=== PATIENT | female | born 1940 | race African-American/Black ===

== ENCOUNTER 2020-03-26 15:41 | Inpatient (IN) | payer OTHER ==
[2020-03-26] MEDS ORDERED: SODIUM CHLORIDE 0.9% 500 ML INFUS.BAG IV ONE (16:31)
[2020-03-26] MEDS ORDERED: ACETAMINOPHEN 1000 MG/100 ML VIAL (NON FORMULARY) IVPB ONE (16:41)
[2020-03-26] MEDS ORDERED: ACETAMINOPHEN INJECTION 100 ML IVPB ONE (16:41)
[2020-03-26 16:54] LABS: BASO % 0.7 % (0-2.0); HEMOGLOBIN 13.1 GM/dL (10.7-15.3); LYMPH % 5.9 % (8-40); MCH 29.8 pg (25.7-33.7); MCHC 31.9 g/dl (32.0-36.0); MEAN CELL VOLUME 93.2 fl (80-96); MEAN PLT VOLUME 9.5 fl (7.5-11.1); MONO % 4.1 % (3.8-10.2); NEUT % 89.3 % (42.8-82.8); PLATELET COUNT 222 K/MM3 (134-434); RBC 4.39 M/mm3 (3.60-5.2); RDW 14.6 % (11.6-15.6); WHITE BLOOD COUNT 11.1 K/mm3 (4.0-10.0)
[2020-03-26 16:57] LABS: VENOUS BASE EXCESS 1.2 mmol/L (-2-2); VENOUS O2 SATURATION 22.9 % (70-80); VENOUS PCO2 50.1 mmHg (38-52); VENOUS PH 7.355 (7.310-7.410)
[2020-03-26 17:03] LABS: PROTHROMBIN TIME (PATIENT) 48.2 SEC (9.7-13.0)
[2020-03-26 17:05] LABS: ACTIVATED PTT 32.9 SECONDS (25.2-36.5)
[2020-03-26 17:06] LABS: EPI CELLS >36 /uL (0-25.1); HYALINE CASTS 42 /uL (0-3.1); PH,URINE 6.5 (5.0-8.0); URINE APPEARANCE TURBID; URINE BACTERIA >9,000 /uL (0-1359); URINE BILIRUBIN NEGATIVE (NEGATIVE); URINE COLOR YELLOW; URINE GLUCOSE (UA) NEGATIVE (NEGATIVE); URINE KETONE NEGATIVE (NEGATIVE); URINE LEUK ESTERASE 3+ (NEGATIVE); URINE NITRITE POSITIVE (NEGATIVE); URINE PROTEIN 1+ (NEGATIVE); URINE WBC 14245 /uL (0-25.8)
[2020-03-26 17:14] LABS: POTASSIUM 4.9 mmol/L (3.5-5.1)
[2020-03-26 17:16] LABS: ALBUMIN 3.6 g/dl (3.4-5.0); BLOOD UREA NITROGEN 12.8 mg/dL (7-18)
[2020-03-26 17:19] LABS: CREATININE 1.1 mg/dL (0.55-1.3)
[2020-03-26 17:21] LABS: BILIRUBIN,TOTAL 0.9 mg/dL (0.2-1); TOT PROT 7.5 g/dl (6.4-8.2)
[2020-03-26 17:25] LABS: URINE RBC 161.7 /uL (0-23.9)
[2020-03-26 17:28] LABS: INR 4.08 (0.83-1.09)
[2020-03-26] MEDS ORDERED: ERTAPENEM SODIUM 1 GM in SODIUM CHLORIDE 50 ML IVPB ONE (17:30)
[2020-03-26] MEDS ORDERED: ERTAPENEM SODIUM 1 GM VIAL ONE (17:46)
[2020-03-26] MEDS ORDERED: ACETAMINOPHEN 325 MG TABLET (FP) PO PRN (21:59)
[2020-03-26] MEDS ORDERED: SODIUM CHLORIDE 1,000 ML IV SCH (22:00)
[2020-03-26] MEDS: INSULIN SLIDING SCALE (NOVOLOG) 1 VIAL SQ SCH (22:54)
[2020-03-27] MEDS ORDERED: SODIUM CHLORIDE 1,000 ML IV SCH (01:30)
[2020-03-27] MEDS: INSULIN SLIDING SCALE (NOVOLOG) 1 VIAL SQ SCH ×4 (07:08→21:42)
[2020-03-27] MEDS ORDERED: ENOXAPARIN NA (PORCINE) 40 MG/0.4 ML DISP.SYRIN SQ SCH (10:00)
[2020-03-27] MEDS: ERTAPENEM SODIUM 1 GM in SODIUM CHLORIDE 50 ML IVPB SCH (11:21)
[2020-03-27 12:43] LABS: HEMATOCRIT 33.5 % (32.4-45.2); MCH 30.3 pg (25.7-33.7); MCHC 32.8 g/dl (32.0-36.0); MEAN CELL VOLUME 92.4 fl (80-96); MEAN PLT VOLUME 9.8 fl (7.5-11.1); PLATELET COUNT 167 K/MM3 (134-434); RBC 3.62 M/mm3 (3.60-5.2); RDW 13.9 % (11.6-15.6); WHITE BLOOD COUNT 10.4 K/mm3 (4.0-10.0)
[2020-03-27 12:47] LABS: PROTHROMBIN TIME (PATIENT) 56.2 SEC (9.7-13.0)
[2020-03-27 12:58] LABS: POTASSIUM 3.7 mmol/L (3.5-5.1)
[2020-03-27 13:02] LABS: BLOOD UREA NITROGEN 11.2 mg/dL (7-18)
[2020-03-27 13:03] LABS: CALCIUM 8.1 mg/dL (8.5-10.1); MAGNESIUM 1.7 mg/dL (1.8-2.4)
[2020-03-27 13:05] LABS: PHOSPHOROUS 2.4 mg/dL (2.5-4.9)
[2020-03-27 13:06] LABS: CREATININE 0.9 mg/dL (0.55-1.3)
[2020-03-27 13:50] LABS: INR 4.86 (0.83-1.09)
[2020-03-27] MEDS ORDERED: PT OWN MED DRAWER 7, Y5N ONE (23:20)
[2020-03-28] MEDS: INSULIN SLIDING SCALE (NOVOLOG) 1 VIAL SQ SCH ×4 (06:13→21:09)
[2020-03-28 08:37] LABS: INR 2.76 (0.83-1.09)
[2020-03-28 08:42] LABS: POTASSIUM 4.1 mmol/L (3.5-5.1)
[2020-03-28 08:48] LABS: ALBUMIN 2.6 g/dl (3.4-5.0); BLOOD UREA NITROGEN 13.1 mg/dL (7-18); CALCIUM 8.3 mg/dL (8.5-10.1)
[2020-03-28 08:49] LABS: BASO % 0.6 % (0-2.0); EOS % 0.4 % (0-4.5); HEMATOCRIT 31.5 % (32.4-45.2); HEMOGLOBIN 10.2 GM/dL (10.7-15.3); LYMPH % 9.6 % (8-40); MCH 30.2 pg (25.7-33.7); MCHC 32.3 g/dl (32.0-36.0); MEAN CELL VOLUME 93.7 fl (80-96); MEAN PLT VOLUME 9.9 fl (7.5-11.1); MONO % 5.4 % (3.8-10.2); PLATELET COUNT 146 K/MM3 (134-434); RBC 3.36 M/mm3 (3.60-5.2); RDW 14.4 % (11.6-15.6); WHITE BLOOD COUNT 9.3 K/mm3 (4.0-10.0)
[2020-03-28 08:51] LABS: CREATININE 0.9 mg/dL (0.55-1.3)
[2020-03-28 08:52] LABS: BILIRUBIN,TOTAL 0.7 mg/dL (0.2-1)
[2020-03-28 09:06] LABS: TOT PROT 5.5 g/dl (6.4-8.2)
[2020-03-28] MEDS: ERTAPENEM SODIUM 1 GM in SODIUM CHLORIDE 50 ML IVPB SCH (10:10)
[2020-03-28 10:34] LABS: PLATELET ESTIMATE DECREASED
[2020-03-28] MEDS ORDERED: INSULIN (NOVOLOG) ASPART 100 UNITS/ML 10ML VIAL ONE (11:00)
[2020-03-28] MEDS: FUROSEMIDE 20 MG TABLET (FP) PO SCH (14:26)
[2020-03-28] MEDS: ASCORBIC ACID 500 MG TABLET (FP) PO SCH (14:26)
[2020-03-28] MEDS ORDERED: WARFARIN NA 3 MG TABLET PO ONE (16:27)
[2020-03-28] MEDS: ARIPiprazole 2 MG TABLET PO SCH ×2 (17:15→21:08)
[2020-03-28] MEDS: CEFAZOLIN 2 GM/D5W 2 GM/50 ML ML IVPB SCH (17:15)
[2020-03-28] MEDS ORDERED: PT OWN MED DRAWER 7, Y5N ONE (20:59)
[2020-03-28] MEDS: DOCUSATE SODIUM 100 MG CAPSULE (FP) PO SCH ×2 (21:08→21:10)
[2020-03-28] MEDS: ATORVASTATIN CA 10 MG TABLET (FP) PO SCH (21:08)
[2020-03-28] MEDS ORDERED: METHYL SALICYLATE/MENTHOL OINT 30 GM TUBE TP SCH (23:00)
[2020-03-29] MEDS: CEFAZOLIN 2 GM/D5W 2 GM/50 ML ML IVPB SCH ×3 (01:12→18:07)
[2020-03-29] MEDS: INSULIN SLIDING SCALE (NOVOLOG) 1 VIAL SQ SCH ×4 (06:04→22:01)
[2020-03-29] MEDS ORDERED: INSULIN (NOVOLOG) ASPART 100 UNITS/ML 10ML VIAL ONE ×2 (06:50→11:02)
[2020-03-29] MEDS ORDERED: PT OWN MED DRAWER 7, Y5N ONE ×2 (09:01→21:51)
[2020-03-29 09:08] LABS: BASO % 0.5 % (0-2.0); EOS % 1.7 % (0-4.5); HEMATOCRIT 31.1 % (32.4-45.2); HEMOGLOBIN 10.3 GM/dL (10.7-15.3); LYMPH % 13.4 % (8-40); MCH 30.3 pg (25.7-33.7); MEAN CELL VOLUME 91.7 fl (80-96); MEAN PLT VOLUME 8.9 fl (7.5-11.1); MONO % 7.3 % (3.8-10.2); NEUT % 77.1 % (42.8-82.8); PLATELET COUNT 176 K/MM3 (134-434); RDW 14.1 % (11.6-15.6)
[2020-03-29] MEDS: ASCORBIC ACID 500 MG TABLET (FP) PO SCH (09:13)
[2020-03-29] MEDS: FUROSEMIDE 20 MG TABLET (FP) PO SCH (09:13)
[2020-03-29] MEDS: DOCUSATE SODIUM 100 MG CAPSULE (FP) PO SCH ×2 (09:13→21:52)
[2020-03-29] MEDS: ARIPiprazole 2 MG TABLET PO SCH ×2 (09:13→21:53)
[2020-03-29] MEDS: MULTIVITAMINS (DAILY MVI) TABLET (FP) PO SCH (09:13)
[2020-03-29 09:29] LABS: POTASSIUM 3.9 mmol/L (3.5-5.1)
[2020-03-29 09:39] LABS: ALBUMIN 2.6 g/dl (3.4-5.0); BLOOD UREA NITROGEN 10.1 mg/dL (7-18); CALCIUM 8.3 mg/dL (8.5-10.1); INR 2.16 (0.83-1.09); MAGNESIUM 1.9 mg/dL (1.8-2.4); PROTHROMBIN TIME (PATIENT) 25.6 SEC (9.7-13.0)
[2020-03-29 09:42] LABS: CREATININE 0.8 mg/dL (0.55-1.3)
[2020-03-29 09:43] LABS: BILIRUBIN,TOTAL 0.6 mg/dL (0.2-1); TOT PROT 5.6 g/dl (6.4-8.2)
[2020-03-29] MEDS ORDERED: WARFARIN NA 3 MG TABLET PO SCH (18:00)
[2020-03-29] MEDS: ATORVASTATIN CA 10 MG TABLET (FP) PO SCH (21:53)
[2020-03-30] MEDS: CEFAZOLIN 2 GM/D5W 2 GM/50 ML ML IVPB SCH ×3 (01:43→17:08)
[2020-03-30] MEDS: INSULIN SLIDING SCALE (NOVOLOG) 1 VIAL SQ SCH ×4 (06:33→21:17)
[2020-03-30] MEDS ORDERED: PT OWN MED DRAWER 7, Y5N ONE ×2 (09:19→21:11)
[2020-03-30] MEDS: FUROSEMIDE 20 MG TABLET (FP) PO SCH (09:25)
[2020-03-30] MEDS: MULTIVITAMINS (DAILY MVI) TABLET (FP) PO SCH (09:25)
[2020-03-30] MEDS: DOCUSATE SODIUM 100 MG CAPSULE (FP) PO SCH ×2 (09:25→21:19)
[2020-03-30] MEDS: ARIPiprazole 2 MG TABLET PO SCH ×2 (09:25→21:19)
[2020-03-30] MEDS: ASCORBIC ACID 500 MG TABLET (FP) PO SCH (09:25)
[2020-03-30 13:58] LABS: BASO % 0.4 % (0-2.0); HEMATOCRIT 32.6 % (32.4-45.2); HEMOGLOBIN 10.8 GM/dL (10.7-15.3); LYMPH % 18.7 % (8-40); MCH 30.3 pg (25.7-33.7); MEAN CELL VOLUME 91.8 fl (80-96); MEAN PLT VOLUME 8.7 fl (7.5-11.1); MONO % 7.4 % (3.8-10.2); NEUT % 71.5 % (42.8-82.8); PLATELET COUNT 217 K/MM3 (134-434); RBC 3.55 M/mm3 (3.60-5.2); RDW 14.1 % (11.6-15.6); WHITE BLOOD COUNT 6.9 K/mm3 (4.0-10.0)
[2020-03-30 14:13] LABS: INR 3.22 (0.83-1.09); PROTHROMBIN TIME (PATIENT) 38.3 SEC (9.7-13.0)
[2020-03-30 14:21] LABS: POTASSIUM 3.7 mmol/L (3.5-5.1)
[2020-03-30 14:24] LABS: ALBUMIN 2.6 g/dl (3.4-5.0); BLOOD UREA NITROGEN 8.9 mg/dL (7-18); CALCIUM 8.5 mg/dL (8.5-10.1)
[2020-03-30 14:27] LABS: CREATININE 0.8 mg/dL (0.55-1.3)
[2020-03-30 14:29] LABS: BILIRUBIN,TOTAL 0.5 mg/dL (0.2-1)
[2020-03-30] MEDS ORDERED: WARFARIN NA 3 MG TABLET PO SCH (18:00)
[2020-03-30] MEDS: ATORVASTATIN CA 10 MG TABLET (FP) PO SCH (21:19)
[2020-03-31] MEDS ORDERED: CEPHALEXIN MONOHYDRATE 500 MG CAPSULE (UD) PO SCH (06:00)
[2020-03-31] MEDS: INSULIN SLIDING SCALE (NOVOLOG) 1 VIAL SQ SCH ×2 (06:14→12:11)
[2020-03-31] MEDS ORDERED: PT OWN MED DRAWER 7, Y5N ONE (09:33)
[2020-03-31] MEDS: ARIPiprazole 2 MG TABLET PO SCH (09:38)
[2020-03-31] MEDS: DOCUSATE SODIUM 100 MG CAPSULE (FP) PO SCH (09:38)
[2020-03-31] MEDS: MULTIVITAMINS (DAILY MVI) TABLET (FP) PO SCH (09:38)
[2020-03-31] MEDS: FUROSEMIDE 20 MG TABLET (FP) PO SCH (09:38)
[2020-03-31] MEDS: ASCORBIC ACID 500 MG TABLET (FP) PO SCH (09:38)
[2020-03-31 10:17] LABS: BASO % 0.9 % (0-2.0); EOS % 3.3 % (0-4.5); HEMATOCRIT 32.1 % (32.4-45.2); HEMOGLOBIN 10.8 GM/dL (10.7-15.3); LYMPH % 33.2 % (8-40); MCH 30.6 pg (25.7-33.7); MCHC 33.5 g/dl (32.0-36.0); MEAN CELL VOLUME 91.2 fl (80-96); MEAN PLT VOLUME 8.2 fl (7.5-11.1); MONO % 6.9 % (3.8-10.2); NEUT % 55.7 % (42.8-82.8); PLATELET COUNT 247 K/MM3 (134-434); RBC 3.52 M/mm3 (3.60-5.2); RDW 14.1 % (11.6-15.6); WHITE BLOOD COUNT 6.1 K/mm3 (4.0-10.0)
[2020-03-31 10:26] LABS: INR 3.98 (0.83-1.09); PROTHROMBIN TIME (PATIENT) 46.3 SEC (9.7-13.0)
[2020-03-31 11:01] LABS: POTASSIUM 4.2 mmol/L (3.5-5.1)
[2020-03-31 11:18] VITALS: BP 112/60; PULSE 84; TEMP 97.7
[2020-03-31 11:29] LABS: CALCIUM 8.8 mg/dL (8.5-10.1)
[2020-03-31 11:30] LABS: ALBUMIN 2.6 g/dl (3.4-5.0); BLOOD UREA NITROGEN 10.5 mg/dL (7-18)
[2020-03-31 11:31] LABS: MAGNESIUM 2.1 mg/dL (1.8-2.4)
[2020-03-31 11:33] LABS: CREATININE 0.8 mg/dL (0.55-1.3)
[2020-03-31 11:34] LABS: TOT PROT 6.1 g/dl (6.4-8.2)
[2020-03-31 11:35] LABS: BILIRUBIN,TOTAL 0.5 mg/dL (0.2-1)
== END 2020-03-31 12:44 | disposition home health service (06) | DRG 871 ==
LOC: JER 15:41 → JERBED 17:26 → J5S 03-27 00:40
PROVIDERS: ADMIT Hospitalist; ATTEND Nurse Practitioner Acute Care
DX: A41.9 Sepsis, unspecified organism (principal); G92 Toxic encephalopathy; N39.0 Urinary tract infection, site not specified; E87.2 Acidosis; B96.20 Unspecified Escherichia coli [E. coli] as the cause of diseases classified elsewhere; R79.1 Abnormal coagulation profile; E11.9 Type 2 diabetes mellitus without complications; R60.0 Localized edema; G31.83 Neurocognitive disorder with Lewy bodies; E78.5 Hyperlipidemia, unspecified; I10 Essential (primary) hypertension; D72.829 Elevated white blood cell count, unspecified; Z88.0 Allergy status to penicillin
CPT/HCPCS: 36415; 70450-TC; 71045-TC-FY; 80048; 80053; 81003; 82803; 82962; 83605; 83735; 84100; 84443; 84484; 85025; 85027; 85610; 85730; 87040; 87086; 87186; 93005; 93010; 93971-TC; 97161-GP; 99285-25; C9803; J0131; U0003

== ENCOUNTER 2020-12-23 10:28 | Inpatient (IN) | payer OTHER ==
[2020-12-23 10:42] VITALS: BMI 24.1
[2020-12-23] MEDS ORDERED: SODIUM CHLORIDE 1,973 ML IV ONE (11:08)
[2020-12-23] MEDS ORDERED: ACETAMINOPHEN 1000 MG/100 ML VIAL (NON FORMULARY) IVPB ONE (11:09)
[2020-12-23] MEDS ORDERED: ACETAMINOPHEN INJECTION 100 ML IVPB ONE (11:15)
[2020-12-23 12:12] LABS: HEMOGLOBIN 11.3 GM/dL (10.7-15.3); MCHC 33.3 g/dl (32.0-36.0); MEAN CELL VOLUME 93.2 fl (80-96); MEAN PLT VOLUME 9.5 fl (7.5-11.1); PLATELET COUNT 222 10^3/uL (134-434); RBC 3.64 M/mm3 (3.60-5.2); RDW 14.1 % (11.6-15.6); WHITE BLOOD COUNT 9.9 K/mm3 (4.0-10.0)
[2020-12-23 12:16] LABS: PROTHROMBIN TIME (PATIENT) 91.1 SEC (9.7-13.0)
[2020-12-23 12:36] LABS: BLOOD UREA NITROGEN 41.2 mg/dL (7-18); CALCIUM 9.1 mg/dL (8.5-10.1)
[2020-12-23 12:37] LABS: ALBUMIN 3.2 g/dl (3.4-5.0)
[2020-12-23 12:40] LABS: CREATININE 1.6 mg/dL (0.55-1.3)
[2020-12-23 12:41] LABS: TOT PROT 7.4 g/dl (6.4-8.2)
[2020-12-23 12:57] LABS: LACTIC ACID 4.4 mmol/L (0.4-2.0)
[2020-12-23] MEDS ORDERED: VANCOMYCIN 1 GM in D5W (PRE-DOCKED) 1,000 MG/250 ML IVPB ONE (13:09)
[2020-12-23] MEDS ORDERED: VANCOMYCIN 1 GRAM (PRE-DOCKED) 1,000 MG/250 ML BAG IVPB ONE (13:20)
[2020-12-23] MEDS ORDERED: PIPERACILLIN/TAZOB 2.25 GM 2.25 GM/50 ML BAG IVPB ONE (13:20)
[2020-12-23 13:59] LABS: URINE APPEARANCE CLEAR; URINE BILIRUBIN NEGATIVE (NEGATIVE); URINE COLOR YELLOW; URINE GLUCOSE (UA) NEGATIVE (NEGATIVE); URINE KETONE TRACE (NEGATIVE); URINE LEUK ESTERASE NEGATIVE (NEGATIVE); URINE NITRITE NEGATIVE (NEGATIVE); URINE PROTEIN NEGATIVE (NEGATIVE)
[2020-12-23] MEDS ORDERED: VANCOMYCIN 1 GRAM (PRE-DOCKED) 1,000 MG/250 ML BAG IVPB SCH (14:00)
[2020-12-23 14:13] LABS: ANISOCYTOSIS 1+; MACROCYTOSIS 0; OVALOCYTE 1+; PLATELET ESTIMATE NORMAL; TEAR DROP CELLS 1+
[2020-12-23] MEDS ORDERED: PHYTONADIONE 5 MG TABLET PO ONE (16:04)
[2020-12-23] MEDS ORDERED: ACETAMINOPHEN 325 MG TABLET (FP) PO PRN ×2 (16:05→22:33)
[2020-12-23] MEDS ORDERED: PIPERACILLIN/TAZOB 2.25 GM 2.25 GM in DEXTROSE 5%-WATER - 50 ML IVPB SCH (16:30)
[2020-12-23] MEDS ORDERED: PHYTONADIONE 5 MG TABLET ONE (16:32)
[2020-12-23] MEDS ORDERED: AZTREONAM 1 GM VIAL (RESTRICTED TO ID) ONE (16:32)
[2020-12-23] MEDS ORDERED: SODIUM CHLORIDE 1,000 ML IV SCH ×2 (16:45→22:33)
[2020-12-23] MEDS ORDERED: MORPHINE SULFATE 2 MG/ML VIAL IVPUSH PRN ×2 (16:45→22:33)
[2020-12-23 16:47] LABS: LACTIC ACID 3.4 mmol/L (0.4-2.0)
[2020-12-23] MEDS: INSULIN SLIDING SCALE (NOVOLOG) 1 VIAL SQ SCH (16:52)
[2020-12-23] MEDS: AZTREONAM 1 GM in DEXTROSE 5%-WATER - 50 ML IVPB ONE ×2 (16:53)
[2020-12-23] MEDS ORDERED: INSULIN SLIDING SCALE (NOVOLOG) 1 VIAL SQ ONE (16:56)
[2020-12-23] MEDS ORDERED: HEPARIN NA (PORCINE) 5,000 UNITS/ML 1ML VIAL IVPUSH PRN ×2 (19:05)
[2020-12-23] MEDS ORDERED: HEPARIN NA (PORCINE) 5,000 UNITS/ML 1ML VIAL IVPUSH ONE (19:05)
[2020-12-23] MEDS ORDERED: ACETAMINOPHEN 1000 MG/100 ML VIAL (NON FORMULARY) IVPB PRN ×2 (19:09→22:33)
[2020-12-23] MEDS ORDERED: HEPARIN INFUSION - 25,000 UNITS/500 ML INFUS.BAG IVPB SCH (19:45)
[2020-12-23] MEDS ORDERED: ARIPiprazole 2 MG TABLET PO SCH (22:00)
[2020-12-23] MEDS ORDERED: DOCUSATE SODIUM 100 MG CAPSULE (FP) PO SCH (22:00)
[2020-12-23] MEDS ORDERED: HEPARIN NA (PORCINE) 5,000 UNITS/ML 1ML VIAL SQ SCH (22:00)
[2020-12-23] MEDS ORDERED: ATORVASTATIN CA 10 MG TABLET (FP) PO SCH (22:00)
[2020-12-24] MEDS ORDERED: AZTREONAM 1 GM VIAL (RESTRICTED TO ID) ONE ×2 (01:29→09:14)
[2020-12-24] MEDS ORDERED: DEXTROSE 5%-WATER - 50 ML IVPB ONE ×2 (01:29→09:15)
[2020-12-24] MEDS: AZTREONAM 1 GM in DEXTROSE 5%-WATER - 50 ML IVPB SCH ×3 (02:25→19:50)
[2020-12-24] MEDS: INSULIN SLIDING SCALE (NOVOLOG) 1 VIAL SQ SCH ×5 (05:16→22:20)
[2020-12-24 09:48] LABS: HEMOGLOBIN 9.1 GM/dL (10.7-15.3); MCH 31.1 pg (25.7-33.7); MCHC 33.6 g/dl (32.0-36.0); MEAN CELL VOLUME 92.5 fl (80-96); MEAN PLT VOLUME 9.4 fl (7.5-11.1); PLATELET COUNT 178 10^3/uL (134-434); RBC 2.91 M/mm3 (3.60-5.2); RDW 14.1 % (11.6-15.6); WHITE BLOOD COUNT 11.4 K/mm3 (4.0-10.0)
[2020-12-24 09:58] LABS: ACTIVATED PTT 56.6 SECONDS (25.2-36.5)
[2020-12-24] MEDS ORDERED: PATIENT'S OWN MEDICATION (NON-FORMULARY) (Losartan Potassium [Cozaar] 100 MG Tablet) PO SCH (10:00)
[2020-12-24 10:04] LABS: PROTHROMBIN TIME (PATIENT) 156.2 SEC (9.7-13.0)
[2020-12-24 10:08] LABS: INR 13.71 (0.83-1.09)
[2020-12-24 10:09] LABS: BLOOD UREA NITROGEN 32.1 mg/dL (7-18); MAGNESIUM 1.6 mg/dL (1.8-2.4)
[2020-12-24 10:12] LABS: PHOSPHOROUS 3.1 mg/dL (2.5-4.9)
[2020-12-24] MEDS: DOCUSATE SODIUM 100 MG CAPSULE (FP) PO SCH ×2 (10:24→22:13)
[2020-12-24] MEDS ORDERED: PHYTONADIONE 10 MG/1 ML AMP SQ SCH (10:30)
[2020-12-24] MEDS ORDERED: PHYTONADIONE 10 MG/1 ML AMP IVPB SCH ×2 (10:33→11:30)
[2020-12-24] MEDS ORDERED: DEXTROSE 50%-WATER - 25 GM/50 ML VIAL IVPUSH ONE (10:38)
[2020-12-24] MEDS ORDERED: DEXTROSE 5%-NORMAL SALINE 1,000 ML IV SCH (10:45)
[2020-12-24] MEDS ORDERED: PHYTONADIONE 10 MG/1 ML AMP IVPB ONE (11:30)
[2020-12-24] MEDS ORDERED: MAGNESIUM SULF 50% (8.12 MEQ/2 ML-1 GM VIAL) IVPB ONE (11:48)
[2020-12-24 12:08] LABS: PROTHROMBIN TIME (PATIENT) 156.2 SEC (9.7-13.0)
[2020-12-24 12:11] LABS: INR 13.71 (0.83-1.09)
[2020-12-24 12:24] LABS: ANISOCYTOSIS 1+; MACROCYTOSIS 0; OVALOCYTE 1+; PLATELET ESTIMATE NORMAL
[2020-12-24] MEDS ORDERED: VANCOMYCIN 1 GRAM (PRE-DOCKED) 1,000 MG/250 ML BAG IVPB SCH ×2 (13:30)
[2020-12-24] MEDS: COLLAGENASE CLOSTRIDIUM HIST. 30 GRAMS TUBE TP SCH (14:03)
[2020-12-24] MEDS ORDERED: SODIUM CHLORIDE 1,000 ML IV SCH (17:30)
[2020-12-24] MEDS ORDERED: DEXTROSE 5%-WATER 100 ML IVPB ONE (17:31)
[2020-12-24] MEDS ORDERED: CEFEPIME HCL 1 GM VIAL (RESTRICTED TO ID) ONE (17:31)
[2020-12-24] MEDS: CEFEPIME 1 GM in DEXTROSE 5%-WATER 1 GM/100 ML BAG IVPB SCH (17:54)
[2020-12-24] MEDS: CLINDAMYCIN 600MG PREMIX IVPB 600 MG/50 ML BAG IVPB SCH (17:55)
[2020-12-24] MEDS: PIPERACILLIN/TAZOB 2.25 GM 2.25 GM in DEXTROSE 5%-WATER - 50 ML IVPB SCH (19:48)
[2020-12-24] MEDS ORDERED: AZTREONAM 1 GM in DEXTROSE 5%-WATER - 50 ML IVPB SCH (20:00)
[2020-12-24 21:21] LABS: INR 2.28 (0.83-1.09); PROTHROMBIN TIME (PATIENT) 27.4 SEC (9.7-13.0)
[2020-12-24] MEDS ORDERED: INSULIN (NOVOLOG) ASPART 100 UNITS/ML 10ML VIAL ONE (21:36)
[2020-12-24 21:45] LABS: LACTIC ACID 4.8 mmol/L (0.4-2.0)
[2020-12-25] MEDS: CLINDAMYCIN 600MG PREMIX IVPB 600 MG/50 ML BAG IVPB SCH ×3 (03:00→17:35)
[2020-12-25] MEDS ORDERED: DEXTROSE 5%-WATER 100 ML IVPB ONE (03:07)
[2020-12-25] MEDS ORDERED: CEFEPIME HCL 1 GM VIAL (RESTRICTED TO ID) ONE ×2 (03:07→16:22)
[2020-12-25] MEDS: CEFEPIME 1 GM in DEXTROSE 5%-WATER 1 GM/100 ML BAG IVPB SCH ×2 (04:03→18:39)
[2020-12-25] MEDS: INSULIN SLIDING SCALE (NOVOLOG) 1 VIAL SQ SCH ×3 (06:41→17:43)
[2020-12-25] MEDS ORDERED: SODIUM CHLORIDE 1,000 ML IV SCH (08:55)
[2020-12-25] MEDS: DOCUSATE SODIUM 100 MG CAPSULE (FP) PO SCH (09:44)
[2020-12-25] MEDS: SODIUM CHLORIDE 1,000 ML IV SCH (09:45)
[2020-12-25] MEDS: LACTOBACILLUS ACIDOPHILUS 1 TABLET PO SCH (09:45)
[2020-12-25] MEDS: COLLAGENASE CLOSTRIDIUM HIST. 30 GRAMS TUBE TP SCH (11:41)
[2020-12-25 13:09] LABS: HEMATOCRIT 26.5 % (32.4-45.2); MCH 31.6 pg (25.7-33.7); MCHC 33.7 g/dl (32.0-36.0); MEAN CELL VOLUME 93.7 fl (80-96); MEAN PLT VOLUME 8.8 fl (7.5-11.1); PLATELET COUNT 160 10^3/uL (134-434); RBC 2.83 M/mm3 (3.60-5.2); RDW 14.5 % (11.6-15.6); WHITE BLOOD COUNT 10.6 K/mm3 (4.0-10.0)
[2020-12-25 14:02] LABS: ANISOCYTOSIS 1+; MACROCYTOSIS 1+; PLATELET ESTIMATE NORMAL
[2020-12-25 15:23] LABS: INR 1.89 (0.83-1.09); PROTHROMBIN TIME (PATIENT) 22.5 SEC (9.7-13.0)
[2020-12-25 15:33] LABS: ACTIVATED PTT 31.9 SECONDS (25.2-36.5)
[2020-12-25 15:51] LABS: CALCIUM 7.6 mg/dL (8.5-10.1)
[2020-12-25 15:52] LABS: MAGNESIUM 1.8 mg/dL (1.8-2.4)
[2020-12-25 15:55] LABS: CREATININE 0.9 mg/dL (0.55-1.3)
[2020-12-25 15:56] LABS: BILIRUBIN,TOTAL 0.8 mg/dL (0.2-1)
[2020-12-25 16:15] LABS: ALBUMIN 1.8 g/dl (3.4-5.0)
[2020-12-26] MEDS: INSULIN SLIDING SCALE (NOVOLOG) 1 VIAL SQ SCH ×4 (01:35→16:39)
[2020-12-26] MEDS ORDERED: CEFEPIME HCL 1 GM VIAL (RESTRICTED TO ID) ONE ×2 (01:50→16:14)
[2020-12-26] MEDS ORDERED: DEXTROSE 5%-WATER 100 ML IVPB ONE ×2 (01:51→16:14)
[2020-12-26] MEDS: DOCUSATE SODIUM 100 MG CAPSULE (FP) PO SCH ×3 (02:25→21:20)
[2020-12-26] MEDS: CLINDAMYCIN 600MG PREMIX IVPB 600 MG/50 ML BAG IVPB SCH ×3 (02:26→17:20)
[2020-12-26] MEDS: CEFEPIME 1 GM in DEXTROSE 5%-WATER 1 GM/100 ML BAG IVPB SCH ×2 (03:06→16:15)
[2020-12-26] MEDS ORDERED: MULTIVITAMINS (DAILY MVI) TABLET (FP) PO SCH (10:00)
[2020-12-26] MEDS ORDERED: ENOXAPARIN NA (PORCINE) 40 MG/0.4 ML DISP.SYRIN SQ SCH (10:00)
[2020-12-26] MEDS: LACTOBACILLUS ACIDOPHILUS 1 TABLET PO SCH (10:03)
[2020-12-26] MEDS: MULTIVITAMINS (DAILY MVI) TABLET (FP) PO SCH (10:03)
[2020-12-26] MEDS: SODIUM CHLORIDE 1,000 ML IV SCH (10:04)
[2020-12-26 13:17] LABS: BASO % 0.2 % (0-2.0); EOS % 1.9 % (0-4.5); HEMATOCRIT 22.4 % (32.4-45.2); HEMOGLOBIN 7.4 GM/dL (10.7-15.3); LYMPH % 7.1 % (8-40); MCH 31.5 pg (25.7-33.7); MCHC 33.2 g/dl (32.0-36.0); MEAN PLT VOLUME 9.2 fl (7.5-11.1); MONO % 3.8 % (3.8-10.2); PLATELET COUNT 188 10^3/uL (134-434); RBC 2.36 M/mm3 (3.60-5.2); RDW 15.1 % (11.6-15.6); WHITE BLOOD COUNT 9.5 K/mm3 (4.0-10.0)
[2020-12-26 13:54] LABS: BLOOD UREA NITROGEN 27.1 mg/dL (7-18)
[2020-12-26 13:55] LABS: ALBUMIN 1.9 g/dl (3.4-5.0)
[2020-12-26 13:58] LABS: CALCIUM 7.9 mg/dL (8.5-10.1)
[2020-12-26 13:59] LABS: MAGNESIUM 1.7 mg/dL (1.8-2.4)
[2020-12-26 14:02] LABS: CREATININE 1.1 mg/dL (0.55-1.3)
[2020-12-26 14:04] LABS: BILIRUBIN,TOTAL 0.7 mg/dL (0.2-1); TOT PROT 5.1 g/dl (6.4-8.2)
[2020-12-26] MEDS: COLLAGENASE CLOSTRIDIUM HIST. 30 GRAMS TUBE TP SCH (14:36)
[2020-12-26] MEDS ORDERED: ENOXAPARIN NA (PORCINE) 60 MG/0.6 ML DISP.SYRIN SQ SCH (16:21)
[2020-12-26] MEDS ORDERED: MAGNESIUM OXIDE 400 MG TABLET (FP) PO ONE (16:27)
[2020-12-27] MEDS: INSULIN SLIDING SCALE (NOVOLOG) 1 VIAL SQ SCH ×4 (00:26→19:08)
[2020-12-27] MEDS: CLINDAMYCIN 600MG PREMIX IVPB 600 MG/50 ML BAG IVPB SCH ×2 (02:00→11:05)
[2020-12-27] MEDS ORDERED: DEXTROSE 5%-WATER 100 ML IVPB ONE ×2 (03:45→12:41)
[2020-12-27] MEDS ORDERED: CEFEPIME HCL 1 GM VIAL (RESTRICTED TO ID) ONE (03:45)
[2020-12-27] MEDS: CEFEPIME 1 GM in DEXTROSE 5%-WATER 1 GM/100 ML BAG IVPB SCH (03:46)
[2020-12-27] MEDS: SODIUM CHLORIDE 1,000 ML IV SCH ×2 (05:35→11:05)
[2020-12-27] MEDS: LACTOBACILLUS ACIDOPHILUS 1 TABLET PO SCH (11:05)
[2020-12-27] MEDS: COLLAGENASE CLOSTRIDIUM HIST. 30 GRAMS TUBE TP SCH (11:06)
[2020-12-27] MEDS: DOCUSATE SODIUM 100 MG CAPSULE (FP) PO SCH (11:06)
[2020-12-27] MEDS: MULTIVITAMINS (DAILY MVI) TABLET (FP) PO SCH (11:06)
[2020-12-27] MEDS: CEFTRIAXONE 2 GM in DEXTROSE 5%-WATER 2 GM/100 ML BAG IVPB SCH (13:01)
[2020-12-27 13:52] LABS: BASO % 0.3 % (0-2.0); EOS % 1.6 % (0-4.5); HEMATOCRIT 24.3 % (32.4-45.2); HEMOGLOBIN 8.3 GM/dL (10.7-15.3); LYMPH % 7.6 % (8-40); MCH 31.4 pg (25.7-33.7); MCHC 34.2 g/dl (32.0-36.0); MEAN CELL VOLUME 91.8 fl (80-96); MEAN PLT VOLUME 9.5 fl (7.5-11.1); MONO % 5.4 % (3.8-10.2); NEUT % 85.1 % (42.8-82.8); PLATELET COUNT 192 10^3/uL (134-434); RBC 2.65 M/mm3 (3.60-5.2); RDW 14.7 % (11.6-15.6); WHITE BLOOD COUNT 9.7 K/mm3 (4.0-10.0)
[2020-12-27 13:54] LABS: ACTIVATED PTT 44.6 SECONDS (25.2-36.5)
[2020-12-27] MEDS: VANCOMYCIN 1 GRAM (PRE-DOCKED) 1,000 MG/250 ML BAG IVPB SCH (14:52)
[2020-12-27 15:03] LABS: ALBUMIN 1.8 g/dl (3.4-5.0); BILIRUBIN,TOTAL 0.7 mg/dL (0.2-1); BLOOD UREA NITROGEN 26.5 mg/dL (7-18); MAGNESIUM 1.7 mg/dL (1.8-2.4); TOT PROT 5.1 g/dl (6.4-8.2)
[2020-12-27 18:19] LABS: PROTHROMBIN TIME (PATIENT) 94.2 SEC (9.7-13.0)
[2020-12-27 18:54] LABS: INR 8.28 (0.83-1.09)
[2020-12-27] MEDS ORDERED: PHYTONADIONE 10 MG/1 ML AMP IVPB ONE (20:18)
[2020-12-27 23:58] LABS: PROTHROMBIN TIME (PATIENT) 107.8 SEC (9.7-13.0)
[2020-12-27 23:59] LABS: INR 9.51 (0.83-1.09)
[2020-12-28] MEDS: DOCUSATE SODIUM 100 MG CAPSULE (FP) PO SCH ×3 (00:06→23:52)
[2020-12-28] MEDS: INSULIN SLIDING SCALE (NOVOLOG) 1 VIAL SQ SCH ×5 (00:16→23:48)
[2020-12-28] MEDS ORDERED: DEXTROSE 5%-WATER 100 ML IVPB ONE (08:51)
[2020-12-28] MEDS: SODIUM CHLORIDE 1,000 ML IV SCH (11:07)
[2020-12-28] MEDS: CEFTRIAXONE 2 GM in DEXTROSE 5%-WATER 2 GM/100 ML BAG IVPB SCH (11:08)
[2020-12-28] MEDS: MULTIVITAMINS (DAILY MVI) TABLET (FP) PO SCH (11:11)
[2020-12-28] MEDS: LACTOBACILLUS ACIDOPHILUS 1 TABLET PO SCH (11:11)
[2020-12-28 13:13] LABS: PROTHROMBIN TIME (PATIENT) 49.1 SEC (9.7-13.0)
[2020-12-28 13:14] LABS: BASO % 0.4 % (0-2.0); EOS % 1.1 % (0-4.5); HEMATOCRIT 28.8 % (32.4-45.2); HEMOGLOBIN 10.1 GM/dL (10.7-15.3); LYMPH % 8.2 % (8-40); MCH 31.3 pg (25.7-33.7); MEAN CELL VOLUME 89.3 fl (80-96); MEAN PLT VOLUME 9.2 fl (7.5-11.1); MONO % 7.4 % (3.8-10.2); NEUT % 82.9 % (42.8-82.8); PLATELET COUNT 210 10^3/uL (134-434); RBC 3.23 M/mm3 (3.60-5.2); RDW 14.3 % (11.6-15.6); WHITE BLOOD COUNT 9.6 K/mm3 (4.0-10.0)
[2020-12-28] MEDS: VANCOMYCIN 1 GRAM (PRE-DOCKED) 1,000 MG/250 ML BAG IVPB SCH (13:33)
[2020-12-28 13:35] LABS: ALBUMIN 1.6 g/dl (3.4-5.0); BLOOD UREA NITROGEN 24.7 mg/dL (7-18); CALCIUM 8.3 mg/dL (8.5-10.1); MAGNESIUM 1.7 mg/dL (1.8-2.4)
[2020-12-28 13:39] LABS: CREATININE 0.9 mg/dL (0.55-1.3)
[2020-12-28 13:40] LABS: BILIRUBIN,TOTAL 0.5 mg/dL (0.2-1)
[2020-12-28 14:06] LABS: INR 4.16 (0.83-1.09)
[2020-12-28] MEDS ORDERED: AMINO ACIDS 4.25%/D5W 1,000 ML IV SCH (15:45)
[2020-12-28] MEDS ORDERED: AMINO ACIDS/PROTEIN HYDROLYS 30 ML LIQUID.PKT PO SCH (17:30)
[2020-12-28] MEDS: COLLAGENASE CLOSTRIDIUM HIST. 30 GRAMS TUBE TP SCH (18:07)
[2020-12-29] MEDS: INSULIN SLIDING SCALE (NOVOLOG) 1 VIAL SQ SCH ×4 (06:38→23:24)
[2020-12-29 08:49] LABS: HEMATOCRIT 29.7 % (32.4-45.2); HEMOGLOBIN 10.2 GM/dL (10.7-15.3); MCH 30.7 pg (25.7-33.7); MCHC 34.4 g/dl (32.0-36.0); MEAN CELL VOLUME 89.3 fl (80-96); MEAN PLT VOLUME 9.4 fl (7.5-11.1); PLATELET COUNT 252 10^3/uL (134-434); RBC 3.33 M/mm3 (3.60-5.2); RDW 14.3 % (11.6-15.6); WHITE BLOOD COUNT 8.9 K/mm3 (4.0-10.0)
[2020-12-29 09:13] LABS: CALCIUM 8.5 mg/dL (8.5-10.1)
[2020-12-29 09:15] LABS: ALBUMIN 1.7 g/dl (3.4-5.0); BLOOD UREA NITROGEN 22.6 mg/dL (7-18); MAGNESIUM 1.8 mg/dL (1.8-2.4)
[2020-12-29 09:16] LABS: CREATININE 0.8 mg/dL (0.55-1.3)
[2020-12-29 09:19] LABS: BILIRUBIN,TOTAL 1.2 mg/dL (0.2-1)
[2020-12-29] MEDS ORDERED: DEXTROSE 5%-WATER 100 ML IVPB ONE (11:33)
[2020-12-29] MEDS: MULTIVITAMINS (DAILY MVI) TABLET (FP) PO SCH (11:39)
[2020-12-29] MEDS: LACTOBACILLUS ACIDOPHILUS 1 TABLET PO SCH (11:39)
[2020-12-29] MEDS: AMINO ACIDS/PROTEIN HYDROLYS 30 ML LIQUID.PKT PO SCH ×2 (11:40→17:52)
[2020-12-29] MEDS: DOCUSATE SODIUM 100 MG CAPSULE (FP) PO SCH ×2 (11:40→23:24)
[2020-12-29] MEDS: COLLAGENASE CLOSTRIDIUM HIST. 30 GRAMS TUBE TP SCH (11:40)
[2020-12-29 11:52] LABS: ANISOCYTOSIS 0; MACROCYTOSIS 0; PLATELET ESTIMATE NORMAL
[2020-12-29 12:10] LABS: INR 1.86 (0.83-1.09); PROTHROMBIN TIME (PATIENT) 22.1 SEC (9.7-13.0)
[2020-12-29 12:13] LABS: ACTIVATED PTT 30.5 SECONDS (25.2-36.5)
[2020-12-29] MEDS: CEFTRIAXONE 2 GM in DEXTROSE 5%-WATER 2 GM/100 ML BAG IVPB SCH ×2 (16:06)
[2020-12-29] MEDS: VANCOMYCIN 1 GRAM (PRE-DOCKED) 1,000 MG/250 ML BAG IVPB SCH ×2 (17:24→17:25)
[2020-12-30] MEDS: INSULIN SLIDING SCALE (NOVOLOG) 1 VIAL SQ SCH ×3 (06:04→16:56)
[2020-12-30 08:10] LABS: BASO % 0.5 % (0-2.0); EOS % 1.6 % (0-4.5); HEMATOCRIT 30.3 % (32.4-45.2); HEMOGLOBIN 10.5 GM/dL (10.7-15.3); LYMPH % 12.8 % (8-40); MCH 31.3 pg (25.7-33.7); MCHC 34.7 g/dl (32.0-36.0); MEAN CELL VOLUME 90.3 fl (80-96); MEAN PLT VOLUME 9.7 fl (7.5-11.1); MONO % 5.6 % (3.8-10.2); NEUT % 79.5 % (42.8-82.8); PLATELET COUNT 288 10^3/uL (134-434); RBC 3.36 M/mm3 (3.60-5.2); RDW 14.8 % (11.6-15.6); WHITE BLOOD COUNT 9.4 K/mm3 (4.0-10.0)
[2020-12-30 08:26] LABS: CALCIUM 8.4 mg/dL (8.5-10.1)
[2020-12-30 08:27] LABS: ALBUMIN 1.7 g/dl (3.4-5.0)
[2020-12-30 08:28] LABS: BLOOD UREA NITROGEN 25.2 mg/dL (7-18)
[2020-12-30 08:30] LABS: MAGNESIUM 1.8 mg/dL (1.8-2.4)
[2020-12-30 08:31] LABS: CREATININE 0.8 mg/dL (0.55-1.3)
[2020-12-30 08:33] LABS: BILIRUBIN,TOTAL 0.5 mg/dL (0.2-1); TOT PROT 5.2 g/dl (6.4-8.2)
[2020-12-30] MEDS ORDERED: DEXTROSE 5%-WATER 100 ML IVPB ONE (09:11)
[2020-12-30 09:23] LABS: INR 1.7 (0.83-1.09)
[2020-12-30] MEDS: MULTIVITAMINS (DAILY MVI) TABLET (FP) PO SCH (09:44)
[2020-12-30] MEDS: LACTOBACILLUS ACIDOPHILUS 1 TABLET PO SCH (09:44)
[2020-12-30] MEDS: DOCUSATE SODIUM 100 MG CAPSULE (FP) PO SCH ×2 (09:44→22:46)
[2020-12-30] MEDS: CEFTRIAXONE 2 GM in DEXTROSE 5%-WATER 2 GM/100 ML BAG IVPB SCH (09:44)
[2020-12-30] MEDS: AMINO ACIDS/PROTEIN HYDROLYS 30 ML LIQUID.PKT PO SCH ×2 (09:44→18:49)
[2020-12-30] MEDS: COLLAGENASE CLOSTRIDIUM HIST. 30 GRAMS TUBE TP SCH (11:00)
[2020-12-30] MEDS: VANCOMYCIN 1 GRAM (PRE-DOCKED) 1,000 MG/250 ML BAG IVPB SCH (14:37)
[2020-12-30] MEDS: AMINO ACIDS 4.25%/D5W 1,000 ML IV SCH ×2 (16:55→22:00)
[2020-12-31] MEDS: INSULIN SLIDING SCALE (NOVOLOG) 1 VIAL SQ SCH ×5 (00:41→22:07)
[2020-12-31 08:19] LABS: BASO % 0.4 % (0-2.0); EOS % 1.8 % (0-4.5); HEMATOCRIT 29.3 % (32.4-45.2); HEMOGLOBIN 10.3 GM/dL (10.7-15.3); LYMPH % 15.5 % (8-40); MCH 31.6 pg (25.7-33.7); MCHC 35.1 g/dl (32.0-36.0); MEAN PLT VOLUME 9.2 fl (7.5-11.1); MONO % 6.4 % (3.8-10.2); NEUT % 75.9 % (42.8-82.8); PLATELET COUNT 299 10^3/uL (134-434); RBC 3.25 M/mm3 (3.60-5.2); RDW 14.6 % (11.6-15.6); WHITE BLOOD COUNT 10.6 K/mm3 (4.0-10.0)
[2020-12-31 08:41] LABS: CALCIUM 8.1 mg/dL (8.5-10.1)
[2020-12-31 08:42] LABS: ALBUMIN 1.7 g/dl (3.4-5.0); BLOOD UREA NITROGEN 20.9 mg/dL (7-18); MAGNESIUM 1.9 mg/dL (1.8-2.4)
[2020-12-31 08:45] LABS: CREATININE 0.7 mg/dL (0.55-1.3)
[2020-12-31 08:49] LABS: BILIRUBIN,TOTAL 0.8 mg/dL (0.2-1)
[2020-12-31] MEDS: AMINO ACIDS/PROTEIN HYDROLYS 30 ML LIQUID.PKT PO SCH ×2 (08:55→17:29)
[2020-12-31 09:04] LABS: INR 1.85 (0.83-1.09)
[2020-12-31] MEDS: LACTOBACILLUS ACIDOPHILUS 1 TABLET PO SCH (10:49)
[2020-12-31] MEDS: COLLAGENASE CLOSTRIDIUM HIST. 30 GRAMS TUBE TP SCH (10:50)
[2020-12-31] MEDS: DOCUSATE SODIUM 100 MG CAPSULE (FP) PO SCH ×2 (10:50→22:07)
[2020-12-31] MEDS: MULTIVITAMINS (DAILY MVI) TABLET (FP) PO SCH (10:50)
[2020-12-31] MEDS ORDERED: DEXTROSE 5%-WATER 100 ML IVPB ONE (11:48)
[2020-12-31] MEDS: CEFTRIAXONE 2 GM in DEXTROSE 5%-WATER 2 GM/100 ML BAG IVPB SCH (11:56)
[2020-12-31] MEDS ORDERED: KETAMINE HCL 200 MG/20 ML VIAL ONE (13:01)
[2020-12-31] MEDS ORDERED: METOPROLOL TARTRATE 5 MG/5 ML VIAL ONE ×2 (13:14→13:22)
[2020-12-31] MEDS: VANCOMYCIN 1 GRAM (PRE-DOCKED) 1,000 MG/250 ML BAG IVPB SCH (13:40)
[2020-12-31] MEDS ORDERED: LACTATED RINGERS SOLUTION 1,000 ML IV SCH ×2 (13:45→13:54)
[2020-12-31] MEDS ORDERED: ACETAMINOPHEN 325 MG TABLET (FP) PO PRN (13:54)
[2020-12-31] MEDS: AMINO ACIDS 4.25%/D5W 1,000 ML IV SCH (17:29)
[2021-01-01] MEDS: INSULIN SLIDING SCALE (NOVOLOG) 1 VIAL SQ SCH ×4 (06:42→22:31)
[2021-01-01] MEDS: AMINO ACIDS/PROTEIN HYDROLYS 30 ML LIQUID.PKT PO SCH ×2 (08:02→19:00)
[2021-01-01] MEDS ORDERED: DEXTROSE 5%-WATER 100 ML IVPB ONE (08:14)
[2021-01-01] MEDS ORDERED: metroNIDAZOLE 250 MG TABLET PO SCH (09:57)
[2021-01-01] MEDS ORDERED: CEFUROXIME AXETIL 500 MG TABLET PO SCH (10:00)
[2021-01-01] MEDS: COLLAGENASE CLOSTRIDIUM HIST. 30 GRAMS TUBE TP SCH (10:02)
[2021-01-01] MEDS: CEFTRIAXONE 2 GM in DEXTROSE 5%-WATER 2 GM/100 ML BAG IVPB SCH (10:02)
[2021-01-01] MEDS: LACTOBACILLUS ACIDOPHILUS 1 TABLET PO SCH (10:28)
[2021-01-01] MEDS: MULTIVITAMINS (DAILY MVI) TABLET (FP) PO SCH (10:29)
[2021-01-01] MEDS: HEPARIN NA (PORCINE) 5,000 UNITS/ML 1ML VIAL SQ SCH ×2 (10:29→22:18)
[2021-01-01] MEDS: DOCUSATE SODIUM 100 MG CAPSULE (FP) PO SCH ×2 (10:29→22:18)
[2021-01-01] MEDS: CEFUROXIME AXETIL 500 MG TABLET PO SCH ×2 (10:29→22:20)
[2021-01-01] MEDS: metroNIDAZOLE 500 MG TABLET PO SCH ×3 (10:29→22:53)
[2021-01-01] MEDS: VANCOMYCIN 1 GRAM (PRE-DOCKED) 1,000 MG/250 ML BAG IVPB SCH (12:43)
[2021-01-01] MEDS: AMINO ACIDS 4.25%/D5W 1,000 ML IV SCH (16:18)
[2021-01-01 16:42] LABS: BASO % 0.7 % (0-2.0); EOS % 0.9 % (0-4.5); HEMATOCRIT 27.8 % (32.4-45.2); HEMOGLOBIN 9.5 GM/dL (10.7-15.3); LYMPH % 10.3 % (8-40); MCH 31.5 pg (25.7-33.7); MCHC 34.3 g/dl (32.0-36.0); MEAN CELL VOLUME 91.9 fl (80-96); MEAN PLT VOLUME 8.9 fl (7.5-11.1); MONO % 4.8 % (3.8-10.2); NEUT % 83.3 % (42.8-82.8); PLATELET COUNT 362 10^3/uL (134-434); RBC 3.03 M/mm3 (3.60-5.2); RDW 14.8 % (11.6-15.6)
[2021-01-01 16:58] LABS: INR 1.79 (0.83-1.09); PROTHROMBIN TIME (PATIENT) 22.1 SEC (9.7-13.0)
[2021-01-01 17:00] LABS: ACTIVATED PTT 28.5 SECONDS (25.2-36.5)
[2021-01-01 17:10] LABS: CALCIUM 8.2 mg/dL (8.5-10.1)
[2021-01-01 17:11] LABS: ALBUMIN 1.7 g/dl (3.4-5.0); BLOOD UREA NITROGEN 23.9 mg/dL (7-18)
[2021-01-01 17:14] LABS: CREATININE 0.8 mg/dL (0.55-1.3)
[2021-01-01 17:15] LABS: BILIRUBIN,TOTAL 0.4 mg/dL (0.2-1)
[2021-01-01 17:16] LABS: TOT PROT 5.2 g/dl (6.4-8.2)
[2021-01-01] MEDS ORDERED: metroNIDAZOLE 500 MG TABLET PO ONE (22:45)
[2021-01-02] MEDS: INSULIN SLIDING SCALE (NOVOLOG) 1 VIAL SQ SCH ×4 (06:16→21:07)
[2021-01-02] MEDS: metroNIDAZOLE 500 MG TABLET PO SCH ×3 (06:16→22:30)
[2021-01-02] MEDS ORDERED: DEXTROSE 5%-WATER 100 ML IVPB ONE (08:25)
[2021-01-02] MEDS: AMINO ACIDS/PROTEIN HYDROLYS 30 ML LIQUID.PKT PO SCH ×2 (09:26→16:47)
[2021-01-02] MEDS: CEFTRIAXONE 2 GM in DEXTROSE 5%-WATER 2 GM/100 ML BAG IVPB SCH (09:27)
[2021-01-02] MEDS: COLLAGENASE CLOSTRIDIUM HIST. 30 GRAMS TUBE TP SCH (09:30)
[2021-01-02] MEDS: HEPARIN NA (PORCINE) 5,000 UNITS/ML 1ML VIAL SQ SCH ×2 (09:30→21:07)
[2021-01-02] MEDS: MULTIVITAMINS (DAILY MVI) TABLET (FP) PO SCH (09:30)
[2021-01-02] MEDS: LACTOBACILLUS ACIDOPHILUS 1 TABLET PO SCH (09:31)
[2021-01-02] MEDS: DOCUSATE SODIUM 100 MG CAPSULE (FP) PO SCH ×2 (09:31→21:06)
[2021-01-02] MEDS: VANCOMYCIN 1 GRAM (PRE-DOCKED) 1,000 MG/250 ML BAG IVPB SCH (11:18)
[2021-01-02] MEDS ORDERED: PT OWN MED DRAWER 7, Y5N ONE ×2 (11:24→19:47)
[2021-01-02] MEDS: CEFUROXIME AXETIL 500 MG TABLET PO SCH ×2 (12:04→21:06)
[2021-01-02] MEDS: metoPROLOL SUCCINATE 25 MG TAB.SR.24H (FP) PO SCH (15:35)
[2021-01-02] MEDS: AMINO ACIDS 4.25%/D5W 1,000 ML IV SCH (15:36)
[2021-01-03] MEDS: metroNIDAZOLE 500 MG TABLET PO SCH ×2 (05:32→21:10)
[2021-01-03] MEDS: INSULIN SLIDING SCALE (NOVOLOG) 1 VIAL SQ SCH (06:43)
[2021-01-03] MEDS ORDERED: PT OWN MED DRAWER 7, Y5N ONE ×4 (08:35→20:58)
[2021-01-03] MEDS: COLLAGENASE CLOSTRIDIUM HIST. 30 GRAMS TUBE TP SCH (09:38)
[2021-01-03] MEDS: MULTIVITAMINS (DAILY MVI) TABLET (FP) PO SCH (11:33)
[2021-01-03] MEDS: LACTOBACILLUS ACIDOPHILUS 1 TABLET PO SCH (11:33)
[2021-01-03] MEDS: DOCUSATE SODIUM 100 MG CAPSULE (FP) PO SCH (11:33)
[2021-01-03] MEDS: metoPROLOL SUCCINATE 25 MG TAB.SR.24H (FP) PO SCH (11:33)
[2021-01-03] MEDS: CEFUROXIME AXETIL 500 MG TABLET PO SCH ×2 (11:34→21:09)
[2021-01-03] MEDS: AMINO ACIDS/PROTEIN HYDROLYS 30 ML LIQUID.PKT PO SCH ×2 (11:34→18:41)
[2021-01-03] MEDS: HEPARIN NA (PORCINE) 5,000 UNITS/ML 1ML VIAL SQ SCH ×2 (11:34→21:10)
[2021-01-03] MEDS: VANCOMYCIN 1 GRAM (PRE-DOCKED) 1,000 MG/250 ML BAG IVPB SCH (13:12)
[2021-01-03] MEDS: AMINO ACIDS 4.25%/D5W 1,000 ML IV SCH (18:57)
[2021-01-03] MEDS: DOCUSATE NA 100 MG/10 ML UNIT-DOSE CUPS PO SCH (21:09)
[2021-01-04] MEDS: metroNIDAZOLE 500 MG TABLET PO SCH ×3 (06:22→21:20)
[2021-01-04 07:55] LABS: BASO % 0.8 % (0-2.0); HEMATOCRIT 29.5 % (32.4-45.2); HEMOGLOBIN 10.3 GM/dL (10.7-15.3); MCH 31.4 pg (25.7-33.7); MCHC 34.9 g/dl (32.0-36.0); MEAN CELL VOLUME 90.2 fl (80-96); MEAN PLT VOLUME 8.6 fl (7.5-11.1); MONO % 5.4 % (3.8-10.2); NEUT % 73.8 % (42.8-82.8); PLATELET COUNT 409 10^3/uL (134-434); RBC 3.27 M/mm3 (3.60-5.2); RDW 14.8 % (11.6-15.6); WHITE BLOOD COUNT 9.6 K/mm3 (4.0-10.0)
[2021-01-04 08:14] LABS: CALCIUM 8.6 mg/dL (8.5-10.1)
[2021-01-04 08:18] LABS: CREATININE 0.9 mg/dL (0.55-1.3)
[2021-01-04 08:20] LABS: BILIRUBIN,TOTAL 0.7 mg/dL (0.2-1); TOT PROT 5.7 g/dl (6.4-8.2)
[2021-01-04] MEDS ORDERED: PT OWN MED DRAWER 7, Y5N ONE ×3 (10:01→20:44)
[2021-01-04] MEDS: COLLAGENASE CLOSTRIDIUM HIST. 30 GRAMS TUBE TP SCH (10:31)
[2021-01-04] MEDS: DOCUSATE NA 100 MG/10 ML UNIT-DOSE CUPS PO SCH ×2 (10:31→21:20)
[2021-01-04] MEDS: LACTOBACILLUS ACIDOPHILUS 1 TABLET PO SCH (10:31)
[2021-01-04] MEDS: AMINO ACIDS/PROTEIN HYDROLYS 30 ML LIQUID.PKT PO SCH ×2 (10:31→17:36)
[2021-01-04] MEDS: MULTIVITAMINS (DAILY MVI) TABLET (FP) PO SCH (10:31)
[2021-01-04] MEDS: CEFUROXIME AXETIL 500 MG TABLET PO SCH (10:31)
[2021-01-04] MEDS: metoPROLOL SUCCINATE 25 MG TAB.SR.24H (FP) PO SCH (10:32)
[2021-01-04] MEDS: CEFTRIAXONE 2 GM in DEXTROSE 5%-WATER 2 GM/100 ML BAG IVPB SCH (11:49)
[2021-01-04 13:32] LABS: INR 1.56 (0.83-1.09); PROTHROMBIN TIME (PATIENT) 19.3 SEC (9.7-13.0)
[2021-01-04] MEDS: AMINO ACIDS 4.25%/D5W 1,000 ML IV SCH (16:46)
[2021-01-04] MEDS: HEPARIN NA (PORCINE) 5,000 UNITS/ML 1ML VIAL SQ SCH (21:34)
[2021-01-04] MEDS ORDERED: PHYTONADIONE 10 MG/1 ML AMP IVPB ONE (22:00)
[2021-01-04] MEDS ORDERED: PHYTONADIONE 10 MG/1 ML AMP SQ ONE (23:22)
[2021-01-05] MEDS: metroNIDAZOLE 500 MG TABLET PO SCH ×3 (06:25→22:14)
[2021-01-05] MEDS ORDERED: ACETAMINOPHEN 325 MG TABLET (FP) PO PRN (07:23)
[2021-01-05 07:25] LABS: INR 1.48 (0.83-1.09); PROTHROMBIN TIME (PATIENT) 18.3 SEC (9.7-13.0)
[2021-01-05 07:33] LABS: BASO % 0.6 % (0-2.0); EOS % 2.7 % (0-4.5); HEMATOCRIT 28.7 % (32.4-45.2); HEMOGLOBIN 9.8 GM/dL (10.7-15.3); LYMPH % 18.2 % (8-40); MCH 31.2 pg (25.7-33.7); MCHC 33.9 g/dl (32.0-36.0); MEAN CELL VOLUME 91.8 fl (80-96); MEAN PLT VOLUME 8.8 fl (7.5-11.1); MONO % 7.1 % (3.8-10.2); NEUT % 71.4 % (42.8-82.8); PLATELET COUNT 403 10^3/uL (134-434); RBC 3.13 M/mm3 (3.60-5.2); RDW 14.6 % (11.6-15.6); WHITE BLOOD COUNT 9.1 K/mm3 (4.0-10.0)
[2021-01-05 08:10] LABS: CALCIUM 8.2 mg/dL (8.5-10.1)
[2021-01-05 08:11] LABS: ALBUMIN 1.8 g/dl (3.4-5.0); BLOOD UREA NITROGEN 17.6 mg/dL (7-18)
[2021-01-05 08:13] LABS: CREATININE 0.8 mg/dL (0.55-1.3)
[2021-01-05 08:15] LABS: BILIRUBIN,TOTAL 0.5 mg/dL (0.2-1); TOT PROT 5.4 g/dl (6.4-8.2)
[2021-01-05] MEDS: HEPARIN NA (PORCINE) 5,000 UNITS/ML 1ML VIAL SQ SCH ×2 (09:00→22:13)
[2021-01-05] MEDS: DOCUSATE NA 100 MG/10 ML UNIT-DOSE CUPS PO SCH ×2 (10:47→22:13)
[2021-01-05] MEDS: LACTOBACILLUS ACIDOPHILUS 1 TABLET PO SCH (10:47)
[2021-01-05] MEDS: AMINO ACIDS/PROTEIN HYDROLYS 30 ML LIQUID.PKT PO SCH ×2 (10:47→17:38)
[2021-01-05] MEDS: CEFTRIAXONE 2 GM in DEXTROSE 5%-WATER 2 GM/100 ML BAG IVPB SCH (10:47)
[2021-01-05] MEDS: metoPROLOL SUCCINATE 25 MG TAB.SR.24H (FP) PO SCH (10:48)
[2021-01-05] MEDS: MULTIVITAMINS (DAILY MVI) TABLET (FP) PO SCH (10:48)
[2021-01-05] MEDS: COLLAGENASE CLOSTRIDIUM HIST. 30 GRAMS TUBE TP SCH (10:48)
[2021-01-05] MEDS ORDERED: AMINO ACIDS 4.25%/D5W 1,000 ML IV SCH (16:00)
[2021-01-06] MEDS: metroNIDAZOLE 500 MG TABLET PO SCH ×3 (06:13→21:55)
[2021-01-06] MEDS ORDERED: PT OWN MED DRAWER 7, Y5N ONE ×3 (06:32→21:21)
[2021-01-06 07:27] LABS: EOS % 2.2 % (0-4.5); HEMATOCRIT 29.5 % (32.4-45.2); HEMOGLOBIN 10.1 GM/dL (10.7-15.3); LYMPH % 18.7 % (8-40); MCH 31.2 pg (25.7-33.7); MCHC 34.3 g/dl (32.0-36.0); MEAN PLT VOLUME 8.7 fl (7.5-11.1); MONO % 7.3 % (3.8-10.2); NEUT % 70.8 % (42.8-82.8); PLATELET COUNT 398 10^3/uL (134-434); RBC 3.24 M/mm3 (3.60-5.2); RDW 15.3 % (11.6-15.6); WHITE BLOOD COUNT 9.1 K/mm3 (4.0-10.0)
[2021-01-06 07:43] LABS: CALCIUM 8.3 mg/dL (8.5-10.1)
[2021-01-06 07:44] LABS: ALBUMIN 1.6 g/dl (3.4-5.0); BLOOD UREA NITROGEN 14.6 mg/dL (7-18); MAGNESIUM 2.1 mg/dL (1.8-2.4)
[2021-01-06 07:47] LABS: CREATININE 0.6 mg/dL (0.55-1.3)
[2021-01-06 07:48] LABS: BILIRUBIN,TOTAL 0.8 mg/dL (0.2-1); TOT PROT 5.2 g/dl (6.4-8.2)
[2021-01-06 08:12] LABS: INR 1.39 (0.83-1.09); PROTHROMBIN TIME (PATIENT) 17.2 SEC (9.7-13.0)
[2021-01-06] MEDS: MULTIVITAMINS (DAILY MVI) TABLET (FP) PO SCH (10:43)
[2021-01-06] MEDS: LACTOBACILLUS ACIDOPHILUS 1 TABLET PO SCH (10:43)
[2021-01-06] MEDS: DOCUSATE NA 100 MG/10 ML UNIT-DOSE CUPS PO SCH ×2 (10:43→21:55)
[2021-01-06] MEDS: CEFTRIAXONE 2 GM in DEXTROSE 5%-WATER 2 GM/100 ML BAG IVPB SCH (10:43)
[2021-01-06] MEDS: AMINO ACIDS/PROTEIN HYDROLYS 30 ML LIQUID.PKT PO SCH ×2 (10:43→18:39)
[2021-01-06] MEDS: HEPARIN NA (PORCINE) 5,000 UNITS/ML 1ML VIAL SQ SCH ×2 (10:43→21:55)
[2021-01-06] MEDS: metoPROLOL SUCCINATE 25 MG TAB.SR.24H (FP) PO SCH (10:43)
[2021-01-06] MEDS: COLLAGENASE CLOSTRIDIUM HIST. 30 GRAMS TUBE TP SCH (10:43)
[2021-01-06] MEDS ORDERED: ACETAMINOPHEN 325 MG TABLET (FP) PO PRN (15:16)
[2021-01-06] MEDS: AMINO ACIDS 4.25%/D5W 1,000 ML IV SCH (15:43)
[2021-01-07] MEDS: metroNIDAZOLE 500 MG TABLET PO SCH ×2 (05:13→14:12)
[2021-01-07] MEDS: AMINO ACIDS/PROTEIN HYDROLYS 30 ML LIQUID.PKT PO SCH ×2 (07:10→17:01)
[2021-01-07] MEDS ORDERED: LACTOBACILLUS ACIDOPHILUS 1 TABLET PO SCH (10:00)
[2021-01-07] MEDS ORDERED: metoPROLOL SUCCINATE 25 MG TAB.SR.24H (FP) PO SCH (10:00)
[2021-01-07] MEDS: HEPARIN NA (PORCINE) 5,000 UNITS/ML 1ML VIAL SQ SCH (10:27)
[2021-01-07] MEDS: DOCUSATE NA 100 MG/10 ML UNIT-DOSE CUPS PO SCH (10:27)
[2021-01-07] MEDS: CEFTRIAXONE 2 GM in DEXTROSE 5%-WATER 2 GM/100 ML BAG IVPB SCH (10:28)
[2021-01-07] MEDS: COLLAGENASE CLOSTRIDIUM HIST. 30 GRAMS TUBE TP SCH (10:28)
[2021-01-07] MEDS: MULTIVITAMINS (DAILY MVI) TABLET (FP) PO SCH (10:28)
[2021-01-07 10:59] LABS: BASO % 0.5 % (0-2.0); EOS % 1.2 % (0-4.5); HEMATOCRIT 31.2 % (32.4-45.2); HEMOGLOBIN 10.8 GM/dL (10.7-15.3); LYMPH % 12.8 % (8-40); MCH 31.4 pg (25.7-33.7); MCHC 34.5 g/dl (32.0-36.0); MEAN CELL VOLUME 90.9 fl (80-96); MEAN PLT VOLUME 8.3 fl (7.5-11.1); MONO % 6.6 % (3.8-10.2); NEUT % 78.9 % (42.8-82.8); PLATELET COUNT 429 10^3/uL (134-434); RBC 3.44 M/mm3 (3.60-5.2); RDW 15.2 % (11.6-15.6); WHITE BLOOD COUNT 9.4 K/mm3 (4.0-10.0)
[2021-01-07 11:05] LABS: INR 1.31 (0.83-1.09); PROTHROMBIN TIME (PATIENT) 16.1 SEC (9.7-13.0)
[2021-01-07 11:24] LABS: CALCIUM 8.3 mg/dL (8.5-10.1)
[2021-01-07 11:25] LABS: ALBUMIN 1.8 g/dl (3.4-5.0); BLOOD UREA NITROGEN 19.3 mg/dL (7-18)
[2021-01-07 11:28] LABS: CREATININE 0.8 mg/dL (0.55-1.3)
[2021-01-07 11:30] LABS: TOT PROT 5.7 g/dl (6.4-8.2)
[2021-01-07 11:32] LABS: BILIRUBIN,TOTAL 0.5 mg/dL (0.2-1)
[2021-01-07] MEDS ORDERED: GLUCAGON 1 MG KIT IVPUSH ONE (14:00)
[2021-01-07] MEDS ORDERED: METOPROLOL TARTRATE 25 MG TABLET (FP) NGT ONE (14:20)
[2021-01-07] MEDS ORDERED: METOPROLOL TARTRATE 25 MG TABLET (FP) GT SCH (14:45)
[2021-01-07] MEDS: AMINO ACIDS 4.25%/D5W 1,000 ML IV SCH (17:10)
[2021-01-08 08:45] LABS: BASO % 0.4 % (0-2.0); EOS % 1.2 % (0-4.5); HEMATOCRIT 28.2 % (32.4-45.2); HEMOGLOBIN 9.7 GM/dL (10.7-15.3); LYMPH % 11.1 % (8-40); MCH 31.6 pg (25.7-33.7); MCHC 34.4 g/dl (32.0-36.0); MEAN PLT VOLUME 8.8 fl (7.5-11.1); MONO % 8.1 % (3.8-10.2); NEUT % 79.2 % (42.8-82.8); PLATELET COUNT 356 10^3/uL (134-434); RBC 3.06 M/mm3 (3.60-5.2); RDW 15.1 % (11.6-15.6)
[2021-01-08 08:51] LABS: INR 1.48 (0.83-1.09); PROTHROMBIN TIME (PATIENT) 18.3 SEC (9.7-13.0)
[2021-01-08 09:17] LABS: ALBUMIN 1.6 g/dl (3.4-5.0); BLOOD UREA NITROGEN 18.2 mg/dL (7-18); CALCIUM 7.7 mg/dL (8.5-10.1); MAGNESIUM 1.9 mg/dL (1.8-2.4)
[2021-01-08 09:21] LABS: CREATININE 0.7 mg/dL (0.55-1.3)
[2021-01-08 09:22] LABS: BILIRUBIN,TOTAL 0.6 mg/dL (0.2-1)
[2021-01-08] MEDS ORDERED: PT OWN MED DRAWER 7, Y5N ONE (09:34)
[2021-01-08] MEDS ORDERED: DEXTROSE 5%-WATER 100 ML IVPB ONE (09:35)
[2021-01-08] MEDS: CEFTRIAXONE 2 GM in DEXTROSE 5%-WATER 2 GM/100 ML BAG IVPB SCH (10:05)
[2021-01-08] MEDS: DOCUSATE NA 100 MG/10 ML UNIT-DOSE CUPS GT SCH ×3 (10:41→21:14)
[2021-01-08] MEDS: METOPROLOL TARTRATE 25 MG TABLET (FP) GT SCH ×3 (10:41→21:14)
[2021-01-08] MEDS: APIXABAN 2.5 MG TABLET PO SCH ×2 (10:41→21:15)
[2021-01-08] MEDS: COLLAGENASE CLOSTRIDIUM HIST. 30 GRAMS TUBE TP SCH (10:41)
[2021-01-08] MEDS: AMINO ACIDS/PROTEIN HYDROLYS 30 ML LIQUID.PKT PO SCH ×2 (10:41→18:15)
[2021-01-08] MEDS: MULTIVITAMINS (DAILY MVI) TABLET (FP) PO SCH (10:41)
[2021-01-08] MEDS: LACTOBACILLUS ACIDOPHILUS 1 TABLET GT SCH (10:41)
[2021-01-08] MEDS: AMINO ACIDS 4.25%/D5W 1,000 ML IV SCH (17:00)
[2021-01-08] MEDS: INSULIN SLIDING SCALE (NOVOLOG) 1 VIAL SQ SCH (21:11)
[2021-01-09] MEDS: INSULIN SLIDING SCALE (NOVOLOG) 1 VIAL SQ SCH ×4 (06:29→21:37)
[2021-01-09 08:21] LABS: BASO % 0.9 % (0-2.0); EOS % 2.1 % (0-4.5); HEMATOCRIT 30.3 % (32.4-45.2); HEMOGLOBIN 10.4 GM/dL (10.7-15.3); LYMPH % 13.3 % (8-40); MCH 31.5 pg (25.7-33.7); MCHC 34.3 g/dl (32.0-36.0); MEAN PLT VOLUME 8.7 fl (7.5-11.1); MONO % 8.1 % (3.8-10.2); NEUT % 75.6 % (42.8-82.8); PLATELET COUNT 381 10^3/uL (134-434); RBC 3.29 M/mm3 (3.60-5.2); RDW 15.5 % (11.6-15.6); WHITE BLOOD COUNT 8.9 K/mm3 (4.0-10.0)
[2021-01-09] MEDS ORDERED: DEXTROSE 5%-WATER 100 ML IVPB ONE (08:49)
[2021-01-09 08:52] LABS: CALCIUM 7.9 mg/dL (8.5-10.1)
[2021-01-09 08:53] LABS: ALBUMIN 1.5 g/dl (3.4-5.0); BLOOD UREA NITROGEN 24.6 mg/dL (7-18)
[2021-01-09 08:55] LABS: BILIRUBIN,TOTAL 0.7 mg/dL (0.2-1); TOT PROT 5.2 g/dl (6.4-8.2)
[2021-01-09 08:56] LABS: CREATININE 0.8 mg/dL (0.55-1.3)
[2021-01-09] MEDS: LACTOBACILLUS ACIDOPHILUS 1 TABLET GT SCH (09:02)
[2021-01-09] MEDS: METOPROLOL TARTRATE 25 MG TABLET (FP) GT SCH ×2 (09:02→21:35)
[2021-01-09] MEDS: AMINO ACIDS/PROTEIN HYDROLYS 30 ML LIQUID.PKT PO SCH (09:02)
[2021-01-09] MEDS: DOCUSATE NA 100 MG/10 ML UNIT-DOSE CUPS GT SCH ×2 (09:03→21:37)
[2021-01-09] MEDS: APIXABAN 2.5 MG TABLET PO SCH (09:03)
[2021-01-09] MEDS: CEFTRIAXONE 2 GM in DEXTROSE 5%-WATER 2 GM/100 ML BAG IVPB SCH (09:03)
[2021-01-09] MEDS: MULTIVITAMINS (DAILY MVI) TABLET (FP) PO SCH (09:03)
[2021-01-09] MEDS: COLLAGENASE CLOSTRIDIUM HIST. 30 GRAMS TUBE TP SCH (09:03)
[2021-01-09] MEDS ORDERED: ACETAMINOPHEN 1000 MG/100 ML VIAL (NON FORMULARY) IVPB PRN (17:35)
[2021-01-09] MEDS: AMINO ACIDS/PROTEIN HYDROLYS 30 ML LIQUID.PKT GT SCH (17:44)
[2021-01-09] MEDS ORDERED: FUROSEMIDE 40 MG/4 ML INJECTABLE VIAL IVPUSH ONE (18:52)
[2021-01-09] MEDS: AMINO ACIDS 4.25%/D5W 1,000 ML IV SCH (19:32)
[2021-01-09] MEDS ORDERED: INSULIN (NOVOLOG) ASPART 100 UNITS/ML 10ML VIAL ONE (20:58)
[2021-01-09] MEDS: APIXABAN 2.5 MG TABLET GT SCH (21:35)
[2021-01-10] MEDS: INSULIN SLIDING SCALE (NOVOLOG) 1 VIAL SQ SCH ×4 (06:04→22:50)
[2021-01-10 09:01] LABS: BASO % 0.8 % (0-2.0); EOS % 1.2 % (0-4.5); HEMATOCRIT 30.1 % (32.4-45.2); HEMOGLOBIN 10.3 GM/dL (10.7-15.3); LYMPH % 14.2 % (8-40); MCH 31.6 pg (25.7-33.7); MCHC 34.1 g/dl (32.0-36.0); MEAN CELL VOLUME 92.7 fl (80-96); MEAN PLT VOLUME 9.1 fl (7.5-11.1); MONO % 8.2 % (3.8-10.2); NEUT % 75.6 % (42.8-82.8); PLATELET COUNT 377 10^3/uL (134-434); RBC 3.25 M/mm3 (3.60-5.2); RDW 16.1 % (11.6-15.6); WHITE BLOOD COUNT 9.2 K/mm3 (4.0-10.0)
[2021-01-10 09:08] LABS: INR 2.18 (0.83-1.09)
[2021-01-10 09:31] LABS: CALCIUM 7.9 mg/dL (8.5-10.1)
[2021-01-10 09:32] LABS: ALBUMIN 1.5 g/dl (3.4-5.0); BLOOD UREA NITROGEN 39.3 mg/dL (7-18); MAGNESIUM 2.1 mg/dL (1.8-2.4)
[2021-01-10 09:35] LABS: CREATININE 1.1 mg/dL (0.55-1.3)
[2021-01-10 09:37] LABS: BILIRUBIN,TOTAL 0.4 mg/dL (0.2-1); TOT PROT 5.1 g/dl (6.4-8.2)
[2021-01-10] MEDS ORDERED: DEXTROSE 5%-WATER 100 ML IVPB ONE (09:47)
[2021-01-10] MEDS: CEFTRIAXONE 2 GM in DEXTROSE 5%-WATER 2 GM/100 ML BAG IVPB SCH (09:54)
[2021-01-10] MEDS: FUROSEMIDE 40 MG/4 ML INJECTABLE VIAL IVPUSH SCH (09:55)
[2021-01-10] MEDS: COLLAGENASE CLOSTRIDIUM HIST. 30 GRAMS TUBE TP SCH (09:55)
[2021-01-10] MEDS: METOPROLOL TARTRATE 25 MG TABLET (FP) GT SCH ×2 (10:05→22:32)
[2021-01-10] MEDS: MULTIVITAMINS (DAILY MVI) TABLET (FP) PO SCH (10:05)
[2021-01-10] MEDS: DOCUSATE NA 100 MG/10 ML UNIT-DOSE CUPS GT SCH ×2 (10:05→22:33)
[2021-01-10] MEDS: APIXABAN 2.5 MG TABLET GT SCH ×2 (10:05→22:33)
[2021-01-10] MEDS: LACTOBACILLUS ACIDOPHILUS 1 TABLET GT SCH (10:05)
[2021-01-10] MEDS: AMINO ACIDS/PROTEIN HYDROLYS 30 ML LIQUID.PKT GT SCH ×2 (10:05→17:11)
[2021-01-10] MEDS ORDERED: ACETAMINOPHEN 650 MG/20.3 ML ORAL SOLUTION (CUPS) GT PRN (15:56)
[2021-01-11] MEDS: AMINO ACIDS 4.25%/D5W 1,000 ML IV SCH (01:18)
[2021-01-11] MEDS: INSULIN SLIDING SCALE (NOVOLOG) 1 VIAL SQ SCH ×4 (06:36→21:33)
[2021-01-11] MEDS ORDERED: INSULIN (NOVOLOG) ASPART 100 UNITS/ML 10ML VIAL ONE ×2 (07:01→21:18)
[2021-01-11] MEDS: AMINO ACIDS/PROTEIN HYDROLYS 30 ML LIQUID.PKT GT SCH ×2 (08:55→17:46)
[2021-01-11 08:56] LABS: BASO % 0.8 % (0-2.0); EOS % 0.6 % (0-4.5); HEMATOCRIT 32.2 % (32.4-45.2); HEMOGLOBIN 11.1 GM/dL (10.7-15.3); LYMPH % 10.3 % (8-40); MCH 32.1 pg (25.7-33.7); MCHC 34.3 g/dl (32.0-36.0); MEAN CELL VOLUME 93.4 fl (80-96); MEAN PLT VOLUME 9.5 fl (7.5-11.1); MONO % 9.3 % (3.8-10.2); PLATELET COUNT 356 10^3/uL (134-434); RBC 3.45 M/mm3 (3.60-5.2); RDW 16.5 % (11.6-15.6); WHITE BLOOD COUNT 10.1 K/mm3 (4.0-10.0)
[2021-01-11 08:58] LABS: INR 2.43 (0.83-1.09); PROTHROMBIN TIME (PATIENT) 30.1 SEC (9.7-13.0)
[2021-01-11 09:23] LABS: ALBUMIN 1.5 g/dl (3.4-5.0); BLOOD UREA NITROGEN 44.8 mg/dL (7-18); CALCIUM 7.8 mg/dL (8.5-10.1)
[2021-01-11 09:27] LABS: CREATININE 1.1 mg/dL (0.55-1.3)
[2021-01-11 09:28] LABS: TOT PROT 5.3 g/dl (6.4-8.2)
[2021-01-11 09:29] LABS: BILIRUBIN,TOTAL 1.3 mg/dL (0.2-1)
[2021-01-11] MEDS ORDERED: DEXTROSE 5%-WATER 100 ML IVPB ONE (09:44)
[2021-01-11] MEDS: APIXABAN 2.5 MG TABLET GT SCH ×2 (09:46→21:33)
[2021-01-11] MEDS: MULTIVITAMINS (DAILY MVI) TABLET (FP) PO SCH (09:46)
[2021-01-11] MEDS: CEFTRIAXONE 2 GM in DEXTROSE 5%-WATER 2 GM/100 ML BAG IVPB SCH (09:46)
[2021-01-11] MEDS: DOCUSATE NA 100 MG/10 ML UNIT-DOSE CUPS GT SCH ×2 (09:46→21:32)
[2021-01-11] MEDS: LACTOBACILLUS ACIDOPHILUS 1 TABLET GT SCH (09:46)
[2021-01-11] MEDS: METOPROLOL TARTRATE 25 MG TABLET (FP) GT SCH ×2 (09:47→21:32)
[2021-01-11] MEDS: FUROSEMIDE 40 MG/4 ML INJECTABLE VIAL IVPUSH SCH (09:47)
[2021-01-11] MEDS: COLLAGENASE CLOSTRIDIUM HIST. 30 GRAMS TUBE TP SCH (12:31)
[2021-01-11] MEDS: ALBUTEROL SO4 2.5/IPRATROPIUM 0.5 INH SOL 3 ML VIAL.NEB. NEB SCH (21:07)
[2021-01-12] MEDS ORDERED: PT OWN MED DRAWER 7, Y5N ONE ×2 (05:33→12:09)
[2021-01-12] MEDS: INSULIN SLIDING SCALE (NOVOLOG) 1 VIAL SQ SCH ×4 (06:40→21:21)
[2021-01-12] MEDS: ALBUTEROL SO4 2.5/IPRATROPIUM 0.5 INH SOL 3 ML VIAL.NEB. NEB SCH ×3 (08:17→20:16)
[2021-01-12] MEDS: AMINO ACIDS/PROTEIN HYDROLYS 30 ML LIQUID.PKT GT SCH ×2 (08:50→17:13)
[2021-01-12] MEDS: CEFTRIAXONE 2 GM in DEXTROSE 5%-WATER 2 GM/100 ML BAG IVPB SCH (10:11)
[2021-01-12] MEDS ORDERED: ALTEPLASE 2 MG VIAL IVPB ONE (10:15)
[2021-01-12 10:39] LABS: BASO % 0.7 % (0-2.0); EOS % 1.8 % (0-4.5); HEMATOCRIT 31.3 % (32.4-45.2); HEMOGLOBIN 10.7 GM/dL (10.7-15.3); LYMPH % 11.1 % (8-40); MCH 31.5 pg (25.7-33.7); MEAN CELL VOLUME 92.5 fl (80-96); MEAN PLT VOLUME 8.8 fl (7.5-11.1); NEUT % 75.4 % (42.8-82.8); PLATELET COUNT 331 10^3/uL (134-434); RBC 3.39 M/mm3 (3.60-5.2); WHITE BLOOD COUNT 8.7 K/mm3 (4.0-10.0)
[2021-01-12 10:47] LABS: INR 1.97 (0.83-1.09); PROTHROMBIN TIME (PATIENT) 24.4 SEC (9.7-13.0)
[2021-01-12] MEDS: MULTIVITAMINS (DAILY MVI) TABLET (FP) PO SCH (11:36)
[2021-01-12] MEDS: APIXABAN 2.5 MG TABLET GT SCH (11:36)
[2021-01-12] MEDS: LACTOBACILLUS ACIDOPHILUS 1 TABLET GT SCH (11:36)
[2021-01-12] MEDS: DOCUSATE NA 100 MG/10 ML UNIT-DOSE CUPS GT SCH ×2 (11:36→21:21)
[2021-01-12] MEDS: METOPROLOL TARTRATE 25 MG TABLET (FP) GT SCH ×2 (11:37→21:20)
[2021-01-12 11:39] LABS: ALBUMIN 1.5 g/dl (3.4-5.0); BLOOD UREA NITROGEN 44.7 mg/dL (7-18); MAGNESIUM 2.1 mg/dL (1.8-2.4)
[2021-01-12] MEDS: FUROSEMIDE 40 MG/4 ML INJECTABLE VIAL IVPUSH SCH (11:39)
[2021-01-12] MEDS ORDERED: INSULIN (NOVOLOG) ASPART 100 UNITS/ML 10ML VIAL ONE (11:42)
[2021-01-12 11:57] LABS: BILIRUBIN,TOTAL 0.4 mg/dL (0.2-1); CREATININE 0.8 mg/dL (0.55-1.3); TOT PROT 5.3 g/dl (6.4-8.2)
[2021-01-12] MEDS: ARIPiprazole 2 MG TABLET PO SCH (12:27)
[2021-01-12] MEDS: COLLAGENASE CLOSTRIDIUM HIST. 30 GRAMS TUBE TP SCH (12:28)
[2021-01-12] MEDS ORDERED: DEXTROSE 5%-WATER 100 ML IVPB ONE (13:37)
[2021-01-12] MEDS: HEPARIN NA (PORCINE) 5,000 UNITS/ML 1ML VIAL SQ SCH (21:19)
[2021-01-13] MEDS: INSULIN SLIDING SCALE (NOVOLOG) 1 VIAL SQ SCH ×4 (06:21→21:16)
[2021-01-13] MEDS: ALBUTEROL SO4 2.5/IPRATROPIUM 0.5 INH SOL 3 ML VIAL.NEB. NEB SCH ×3 (08:00→20:25)
[2021-01-13 08:48] LABS: BASO % 0.8 % (0-2.0); EOS % 2.6 % (0-4.5); HEMATOCRIT 30.9 % (32.4-45.2); HEMOGLOBIN 10.4 GM/dL (10.7-15.3); LYMPH % 14.6 % (8-40); MCH 31.5 pg (25.7-33.7); MCHC 33.5 g/dl (32.0-36.0); MEAN CELL VOLUME 93.9 fl (80-96); MEAN PLT VOLUME 9.3 fl (7.5-11.1); MONO % 11.3 % (3.8-10.2); NEUT % 70.7 % (42.8-82.8); PLATELET COUNT 349 10^3/uL (134-434); RBC 3.29 M/mm3 (3.60-5.2); WHITE BLOOD COUNT 7.4 K/mm3 (4.0-10.0)
[2021-01-13 08:52] LABS: INR 1.91 (0.83-1.09); PROTHROMBIN TIME (PATIENT) 23.7 SEC (9.7-13.0)
[2021-01-13 09:27] LABS: BILIRUBIN,TOTAL 0.3 mg/dL (0.2-1); TOT PROT 5.2 g/dl (6.4-8.2)
[2021-01-13 09:28] LABS: ALBUMIN 1.5 g/dl (3.4-5.0); BLOOD UREA NITROGEN 42.7 mg/dL (7-18); CALCIUM 7.9 mg/dL (8.5-10.1)
[2021-01-13 09:29] LABS: MAGNESIUM 2.1 mg/dL (1.8-2.4)
[2021-01-13 09:31] LABS: CREATININE 0.9 mg/dL (0.55-1.3)
[2021-01-13] MEDS ORDERED: DEXTROSE 5%-WATER 100 ML IVPB ONE (10:13)
[2021-01-13] MEDS ORDERED: PT OWN MED DRAWER 7, Y5N ONE (10:13)
[2021-01-13] MEDS: AMINO ACIDS/PROTEIN HYDROLYS 30 ML LIQUID.PKT GT SCH ×2 (10:14→17:28)
[2021-01-13] MEDS: MULTIVITAMINS (DAILY MVI) TABLET (FP) PO SCH (10:14)
[2021-01-13] MEDS: DOCUSATE NA 100 MG/10 ML UNIT-DOSE CUPS GT SCH ×2 (10:14→21:16)
[2021-01-13] MEDS: HEPARIN NA (PORCINE) 5,000 UNITS/ML 1ML VIAL SQ SCH (10:15)
[2021-01-13] MEDS: ARIPiprazole 2 MG TABLET PO SCH (10:15)
[2021-01-13] MEDS: LACTOBACILLUS ACIDOPHILUS 1 TABLET GT SCH (10:15)
[2021-01-13] MEDS: METOPROLOL TARTRATE 25 MG TABLET (FP) GT SCH ×2 (10:15→21:16)
[2021-01-13] MEDS: FUROSEMIDE 40 MG/4 ML INJECTABLE VIAL IVPUSH SCH (10:15)
[2021-01-13] MEDS: CEFTRIAXONE 2 GM in DEXTROSE 5%-WATER 2 GM/100 ML BAG IVPB SCH (10:16)
[2021-01-13] MEDS: COLLAGENASE CLOSTRIDIUM HIST. 30 GRAMS TUBE TP SCH (10:16)
[2021-01-14] MEDS: INSULIN SLIDING SCALE (NOVOLOG) 1 VIAL SQ SCH ×4 (06:32→21:34)
[2021-01-14] MEDS: ALBUTEROL SO4 2.5/IPRATROPIUM 0.5 INH SOL 3 ML VIAL.NEB. NEB SCH ×3 (07:38→20:10)
[2021-01-14] MEDS ORDERED: PT OWN MED DRAWER 7, Y5N ONE (11:11)
[2021-01-14] MEDS ORDERED: DEXTROSE 5%-WATER 100 ML IVPB ONE (11:11)
[2021-01-14] MEDS: CEFTRIAXONE 2 GM in DEXTROSE 5%-WATER 2 GM/100 ML BAG IVPB SCH (11:27)
[2021-01-14] MEDS: AMINO ACIDS/PROTEIN HYDROLYS 30 ML LIQUID.PKT GT SCH ×2 (11:37→17:48)
[2021-01-14] MEDS: DOCUSATE NA 100 MG/10 ML UNIT-DOSE CUPS GT SCH ×2 (11:38→22:19)
[2021-01-14] MEDS: MULTIVITAMINS (DAILY MVI) TABLET (FP) PO SCH (11:38)
[2021-01-14] MEDS: ARIPiprazole 2 MG TABLET PO SCH (11:39)
[2021-01-14] MEDS: LACTOBACILLUS ACIDOPHILUS 1 TABLET GT SCH (11:39)
[2021-01-14] MEDS: COLLAGENASE CLOSTRIDIUM HIST. 30 GRAMS TUBE TP SCH (11:41)
[2021-01-14] MEDS: FUROSEMIDE 40 MG/4 ML INJECTABLE VIAL IVPUSH SCH (11:46)
[2021-01-14] MEDS: METOPROLOL TARTRATE 25 MG TABLET (FP) GT SCH ×2 (11:46→22:19)
[2021-01-14 13:59] LABS: EOS % 1.8 % (0-4.5); LYMPH % 14.2 % (8-40); MCH 31.7 pg (25.7-33.7); MCHC 33.4 g/dl (32.0-36.0); MEAN PLT VOLUME 9.2 fl (7.5-11.1); MONO % 11.8 % (3.8-10.2); NEUT % 71.2 % (42.8-82.8); PLATELET COUNT 319 10^3/uL (134-434); RBC 2.84 M/mm3 (3.60-5.2); WHITE BLOOD COUNT 7.1 K/mm3 (4.0-10.0)
[2021-01-14 14:06] LABS: INR 1.84 (0.83-1.09); PROTHROMBIN TIME (PATIENT) 22.8 SEC (9.7-13.0)
[2021-01-14 14:25] LABS: ALBUMIN 1.2 g/dl (3.4-5.0); CALCIUM 7.8 mg/dL (8.5-10.1)
[2021-01-14 14:26] LABS: BLOOD UREA NITROGEN 35.9 mg/dL (7-18)
[2021-01-14 14:27] LABS: MAGNESIUM 1.9 mg/dL (1.8-2.4)
[2021-01-14 14:29] LABS: CREATININE 0.8 mg/dL (0.55-1.3)
[2021-01-14 14:30] LABS: BILIRUBIN,TOTAL 0.4 mg/dL (0.2-1); TOT PROT 4.6 g/dl (6.4-8.2)
[2021-01-14] MEDS ORDERED: SODIUM CHLORIDE 250 ML IV STA (21:55)
[2021-01-14] MEDS ORDERED: METOPROLOL TARTRATE 5 MG/5 ML VIAL IVPUSH ONE ×2 (21:56→22:05)
[2021-01-14] MEDS ORDERED: METOPROLOL TARTRATE 5 MG/5 ML VIAL ONE (22:05)
[2021-01-14] MEDS ORDERED: APIXABAN 2.5 MG TABLET PO SCH (22:30)
[2021-01-15] MEDS ORDERED: ASPIRIN 81 MG CHEWABLE TABLETS PO ONE (01:17)
[2021-01-15] MEDS ORDERED: METOPROLOL TARTRATE 25 MG TABLET (FP) GT ONE (01:18)
[2021-01-15] MEDS ORDERED: DIGOXIN 0.5 MG/2 ML AMPUL IVPUSH ONE ×2 (01:49→02:44)
[2021-01-15] MEDS ORDERED: AMIODARONE HCL 150 MG/3 ML VIAL IVPUSH ONE (02:43)
[2021-01-15] MEDS ORDERED: METOPROLOL TARTRATE 5 MG/5 ML VIAL IVPUSH ONE (03:19)
[2021-01-15] MEDS ORDERED: dilTIAZem HCL 50 MG/10 ML - 10 ML VIAL IVPUSH PRN (03:41)
[2021-01-15] MEDS ORDERED: SODIUM CHLORIDE 500 ML IV STA (03:42)
[2021-01-15] MEDS: INSULIN SLIDING SCALE (NOVOLOG) 1 VIAL SQ SCH ×4 (07:04→22:58)
[2021-01-15] MEDS: ALBUTEROL SO4 2.5/IPRATROPIUM 0.5 INH SOL 3 ML VIAL.NEB. NEB SCH ×3 (07:52→20:05)
[2021-01-15 08:27] LABS: BASO % 0.9 % (0-2.0); EOS % 0.3 % (0-4.5); HEMATOCRIT 28.3 % (32.4-45.2); HEMOGLOBIN 9.5 GM/dL (10.7-15.3); MCH 31.6 pg (25.7-33.7); MCHC 33.4 g/dl (32.0-36.0); MEAN CELL VOLUME 94.6 fl (80-96); MEAN PLT VOLUME 9.5 fl (7.5-11.1); MONO % 10.3 % (3.8-10.2); NEUT % 74.5 % (42.8-82.8); PLATELET COUNT 384 10^3/uL (134-434); RDW 17.9 % (11.6-15.6); WHITE BLOOD COUNT 8.2 K/mm3 (4.0-10.0)
[2021-01-15 08:32] LABS: INR 2.2 (0.83-1.09); PROTHROMBIN TIME (PATIENT) 27.3 SEC (9.7-13.0)
[2021-01-15 08:43] LABS: CHLORIDE 114 mmol/L (98-107); SODIUM 143 mmol/L (136-145)
[2021-01-15 08:53] LABS: ANION GAP 6 MMOL/L (8-16); CO2 23 mmol/L (21-32); GLUCOSE,RANDOM 136 mg/dL (74-106); MAGNESIUM 1.6 mg/dL (1.8-2.4)
[2021-01-15 08:55] LABS: ALBUMIN 1.1 g/dl (3.4-5.0); BLOOD UREA NITROGEN 30.5 mg/dL (7-18)
[2021-01-15 08:57] LABS: CREATININE 0.7 mg/dL (0.55-1.3); SGOT/AST 25 U/L (15-37); SGPT/ALT 15 U/L (13-61)
[2021-01-15 08:58] LABS: BILIRUBIN,TOTAL 0.4 mg/dL (0.2-1); TOT PROT 4.1 g/dl (6.4-8.2)
[2021-01-15 08:59] LABS: ALK PHOS 59 U/L (45-117)
[2021-01-15 09:07] LABS: CALCIUM 6.4 mg/dL (8.5-10.1)
[2021-01-15] MEDS ORDERED: DEXTROSE 5%-WATER 100 ML IVPB ONE (09:26)
[2021-01-15] MEDS ORDERED: PT OWN MED DRAWER 7, Y5N ONE (09:52)
[2021-01-15] MEDS: FUROSEMIDE 40 MG/4 ML INJECTABLE VIAL IVPUSH SCH (10:01)
[2021-01-15] MEDS: DOCUSATE NA 100 MG/10 ML UNIT-DOSE CUPS GT SCH ×2 (10:01→22:21)
[2021-01-15] MEDS: CEFTRIAXONE 2 GM in DEXTROSE 5%-WATER 2 GM/100 ML BAG IVPB SCH (10:01)
[2021-01-15] MEDS: AMINO ACIDS/PROTEIN HYDROLYS 30 ML LIQUID.PKT GT SCH ×2 (10:01→17:29)
[2021-01-15] MEDS: APIXABAN 2.5 MG TABLET PO SCH ×2 (10:02→22:21)
[2021-01-15] MEDS: LACTOBACILLUS ACIDOPHILUS 1 TABLET GT SCH (10:02)
[2021-01-15] MEDS: METOPROLOL TARTRATE 25 MG TABLET (FP) GT SCH ×2 (10:02→22:21)
[2021-01-15] MEDS: MULTIVIT-MINERALS ORAL LIQUID GT SCH (10:45)
[2021-01-15] MEDS: ARIPiprazole 2 MG TABLET PO SCH (10:45)
[2021-01-15] MEDS: COLLAGENASE CLOSTRIDIUM HIST. 30 GRAMS TUBE TP SCH (12:30)
[2021-01-15] MEDS: BANATROL PLUS POWDER PACKET PO SCH ×2 (18:39→22:20)
[2021-01-16] MEDS: BANATROL PLUS POWDER PACKET PO SCH ×3 (05:26→22:02)
[2021-01-16] MEDS: INSULIN SLIDING SCALE (NOVOLOG) 1 VIAL SQ SCH ×4 (06:55→22:35)
[2021-01-16] MEDS: ALBUTEROL SO4 2.5/IPRATROPIUM 0.5 INH SOL 3 ML VIAL.NEB. NEB SCH ×3 (08:36→20:09)
[2021-01-16 09:25] LABS: HEMATOCRIT 27.1 % (32.4-45.2); HEMOGLOBIN 9.1 GM/dL (10.7-15.3); MCH 31.9 pg (25.7-33.7); MCHC 33.5 g/dl (32.0-36.0); MEAN CELL VOLUME 95.1 fl (80-96); MEAN PLT VOLUME 8.9 fl (7.5-11.1); PLATELET COUNT 375 10^3/uL (134-434); RBC 2.85 M/mm3 (3.60-5.2); RDW 18.2 % (11.6-15.6); WHITE BLOOD COUNT 6.2 K/mm3 (4.0-10.0)
[2021-01-16 09:26] LABS: BASO % 0.6 % (0-2.0); EOS % 2.2 % (0-4.5); LYMPH % 18.9 % (8-40); MONO % 11.9 % (3.8-10.2); NEUT % 66.4 % (42.8-82.8)
[2021-01-16] MEDS ORDERED: DEXTROSE 5%-WATER 100 ML IVPB ONE (09:51)
[2021-01-16] MEDS: CEFTRIAXONE 2 GM in DEXTROSE 5%-WATER 2 GM/100 ML BAG IVPB SCH (09:55)
[2021-01-16] MEDS: AMINO ACIDS/PROTEIN HYDROLYS 30 ML LIQUID.PKT GT SCH ×2 (09:55→17:12)
[2021-01-16] MEDS: FUROSEMIDE 40 MG/4 ML INJECTABLE VIAL IVPUSH SCH (09:56)
[2021-01-16] MEDS: ACETAMINOPHEN 650 MG/20.3 ML ORAL SOLUTION (CUPS) GT PRN (09:56)
[2021-01-16] MEDS: APIXABAN 2.5 MG TABLET PO SCH ×2 (09:56→22:01)
[2021-01-16] MEDS: LACTOBACILLUS ACIDOPHILUS 1 TABLET GT SCH (09:57)
[2021-01-16] MEDS: METOPROLOL TARTRATE 25 MG TABLET (FP) GT SCH ×2 (09:57→22:02)
[2021-01-16] MEDS: COLLAGENASE CLOSTRIDIUM HIST. 30 GRAMS TUBE TP SCH (09:57)
[2021-01-16] MEDS: DOCUSATE NA 100 MG/10 ML UNIT-DOSE CUPS GT SCH ×2 (09:57→22:01)
[2021-01-16 10:20] LABS: ALBUMIN 0.4 g/dl (3.4-5.0); BILIRUBIN,TOTAL 0.3 mg/dL (0.2-1); BLOOD UREA NITROGEN 35.9 mg/dL (7-18); CALCIUM 7.8 mg/dL (8.5-10.1); CHLORIDE 108 mmol/L (98-107); CO2 28 mmol/L (21-32); CREATININE 0.8 mg/dL (0.55-1.3); GLUCOSE,RANDOM 140 mg/dL (74-106); SGOT/AST 28 U/L (15-37); SGPT/ALT 18 U/L (13-61); SODIUM 141 mmol/L (136-145)
[2021-01-16 10:21] LABS: ALK PHOS 73 U/L (45-117)
[2021-01-16] MEDS: MULTIVIT-MINERALS ORAL LIQUID GT SCH (11:43)
[2021-01-16] MEDS: ARIPiprazole 2 MG TABLET PO SCH (11:43)
[2021-01-17] MEDS: ACETAMINOPHEN 650 MG/20.3 ML ORAL SOLUTION (CUPS) GT PRN (01:17)
[2021-01-17] MEDS: BANATROL PLUS POWDER PACKET PO SCH ×2 (05:33→13:39)
[2021-01-17] MEDS: INSULIN SLIDING SCALE (NOVOLOG) 1 VIAL SQ SCH ×4 (06:02→21:44)
[2021-01-17] MEDS: ALBUTEROL SO4 2.5/IPRATROPIUM 0.5 INH SOL 3 ML VIAL.NEB. NEB SCH ×3 (07:25→20:10)
[2021-01-17] MEDS: AMINO ACIDS/PROTEIN HYDROLYS 30 ML LIQUID.PKT GT SCH ×2 (08:15→17:39)
[2021-01-17] MEDS ORDERED: DEXTROSE 5%-WATER 100 ML IVPB ONE (09:12)
[2021-01-17] MEDS: ARIPiprazole 2 MG TABLET PO SCH (09:29)
[2021-01-17] MEDS: CEFTRIAXONE 2 GM in DEXTROSE 5%-WATER 2 GM/100 ML BAG IVPB SCH (09:29)
[2021-01-17] MEDS: LACTOBACILLUS ACIDOPHILUS 1 TABLET GT SCH (09:29)
[2021-01-17] MEDS: MULTIVIT-MINERALS ORAL LIQUID GT SCH (09:29)
[2021-01-17] MEDS: FUROSEMIDE 40 MG/4 ML INJECTABLE VIAL IVPUSH SCH (09:30)
[2021-01-17] MEDS: APIXABAN 2.5 MG TABLET PO SCH ×2 (09:30→21:43)
[2021-01-17] MEDS: METOPROLOL TARTRATE 25 MG TABLET (FP) GT SCH ×2 (09:30→21:43)
[2021-01-17] MEDS: COLLAGENASE CLOSTRIDIUM HIST. 30 GRAMS TUBE TP SCH (09:31)
[2021-01-17] MEDS: DOCUSATE NA 100 MG/10 ML UNIT-DOSE CUPS GT SCH ×2 (11:34→21:30)
[2021-01-17 11:39] LABS: BF WBC & OTHER NUCLEATED CELLS 113 /mm3
[2021-01-17 12:33] LABS: BODY FLUID MACROPHAGES 41 %; BODY FLUID MESOTHELIAL 32 %; BODY FLUID MONOCYTE 6 %
[2021-01-17 13:39] LABS: BASO % 0.9 % (0-2.0); HEMATOCRIT 28.5 % (32.4-45.2); HEMOGLOBIN 9.6 GM/dL (10.7-15.3); MCH 32.1 pg (25.7-33.7); MCHC 33.5 g/dl (32.0-36.0); MEAN CELL VOLUME 95.9 fl (80-96); MEAN PLT VOLUME 8.7 fl (7.5-11.1); MONO % 10.9 % (3.8-10.2); NEUT % 71.2 % (42.8-82.8); PLATELET COUNT 392 10^3/uL (134-434); RBC 2.97 M/mm3 (3.60-5.2); RDW 18.1 % (11.6-15.6); WHITE BLOOD COUNT 6.3 K/mm3 (4.0-10.0)
[2021-01-17 14:10] LABS: MAGNESIUM 1.9 mg/dL (1.8-2.4)
[2021-01-17 14:13] LABS: CREATININE 0.8 mg/dL (0.55-1.3)
[2021-01-17 14:14] LABS: BILIRUBIN,TOTAL 0.2 mg/dL (0.2-1)
[2021-01-17] MEDS ORDERED: SODIUM ZIRCONIUM CYCLOSILICATE (LOKELMA) 5 GM PACKET GT ONE (14:32)
[2021-01-17 14:33] LABS: ALBUMIN 1.4 g/dl (3.4-5.0); BLOOD UREA NITROGEN 37.1 mg/dL (7-18); CALCIUM 8.4 mg/dL (8.5-10.1)
[2021-01-18] MEDS: INSULIN SLIDING SCALE (NOVOLOG) 1 VIAL SQ SCH ×3 (06:05→16:34)
[2021-01-18 07:44] LABS: BASO % 1.1 % (0-2.0); EOS % 1.6 % (0-4.5); HEMATOCRIT 28.8 % (32.4-45.2); HEMOGLOBIN 9.6 GM/dL (10.7-15.3); LYMPH % 18.3 % (8-40); MCH 31.9 pg (25.7-33.7); MCHC 33.4 g/dl (32.0-36.0); MEAN CELL VOLUME 95.4 fl (80-96); MEAN PLT VOLUME 8.7 fl (7.5-11.1); MONO % 9.8 % (3.8-10.2); NEUT % 69.2 % (42.8-82.8); PLATELET COUNT 419 10^3/uL (134-434); RBC 3.02 M/mm3 (3.60-5.2); RDW 18.4 % (11.6-15.6); WHITE BLOOD COUNT 6.8 K/mm3 (4.0-10.0)
[2021-01-18 08:03] LABS: ALBUMIN 1.3 g/dl (3.4-5.0); MAGNESIUM 1.9 mg/dL (1.8-2.4)
[2021-01-18 08:06] LABS: CREATININE 0.8 mg/dL (0.55-1.3)
[2021-01-18 08:08] LABS: BILIRUBIN,TOTAL 0.3 mg/dL (0.2-1); TOT PROT 4.9 g/dl (6.4-8.2)
[2021-01-18] MEDS: ALBUTEROL SO4 2.5/IPRATROPIUM 0.5 INH SOL 3 ML VIAL.NEB. NEB SCH ×3 (08:37→19:59)
[2021-01-18] MEDS ORDERED: DEXTROSE 5%-WATER 100 ML IVPB ONE (08:52)
[2021-01-18] MEDS: AMINO ACIDS/PROTEIN HYDROLYS 30 ML LIQUID.PKT GT SCH ×2 (08:56→17:32)
[2021-01-18] MEDS: APIXABAN 2.5 MG TABLET PO SCH (09:01)
[2021-01-18] MEDS: CEFTRIAXONE 2 GM in DEXTROSE 5%-WATER 2 GM/100 ML BAG IVPB SCH (09:01)
[2021-01-18] MEDS: METOPROLOL TARTRATE 25 MG TABLET (FP) GT SCH (09:01)
[2021-01-18] MEDS: LACTOBACILLUS ACIDOPHILUS 1 TABLET GT SCH (09:02)
[2021-01-18] MEDS: COLLAGENASE CLOSTRIDIUM HIST. 30 GRAMS TUBE TP SCH (09:03)
[2021-01-18] MEDS: MULTIVIT-MINERALS ORAL LIQUID GT SCH (09:03)
[2021-01-18] MEDS: DOCUSATE NA 100 MG/10 ML UNIT-DOSE CUPS GT SCH (09:03)
[2021-01-18] MEDS: ARIPiprazole 2 MG TABLET PO SCH (09:03)
[2021-01-18] MEDS: ACETAMINOPHEN 650 MG/20.3 ML ORAL SOLUTION (CUPS) GT PRN (09:04)
[2021-01-18] MEDS ORDERED: PT OWN MED DRAWER 7, Y5N ONE (09:55)
[2021-01-18] MEDS ORDERED: FUROSEMIDE 20 MG TABLET (FP) GT SCH (10:00)
[2021-01-18 17:13] LABS: BODY FLUID ALBUMIN 0.6 g/dL (Not Estab.)
[2021-01-18 22:20] VITALS: BP 112/84; PULSE 112; TEMP 98.4
== END 2021-01-18 20:50 | disposition home or self-care (01) | DRG 853 ==
LOC: JER 10:28 → JERBED 16:01 → J4W 20:47 → J6S 01-06 14:37 → J4S 01-15 03:45
PROVIDERS: ADMIT Internal Medicine; ATTEND Nurse Practitioner Acute Care
PROC: 0KBP0ZZ Excision of Left Hip Muscle, Open Approach (ICD-10-PCS; principal; 2021-01-04)
PROC: 0KBN0ZZ Excision of Right Hip Muscle, Open Approach (ICD-10-PCS; 2021-01-04)
PROC: 02HV33Z Insertion of Infusion Device into Superior Vena Cava, Percutaneous Approach (ICD-10-PCS; 2021-01-07)
PROC: B518ZZA Fluoroscopy of Superior Vena Cava, Guidance (ICD-10-PCS; 2021-01-07)
PROC: 3E0G36Z Introduction of Nutritional Substance into Upper GI, Percutaneous Approach (ICD-10-PCS; 2021-01-09)
PROC: 0W9B3ZX Drainage of Left Pleural Cavity, Percutaneous Approach, Diagnostic (ICD-10-PCS; 2021-01-14)
DX: A41.81 Sepsis due to Enterococcus (principal); L89.154 Pressure ulcer of sacral region, stage 4; G93.41 Metabolic encephalopathy; E43 Unspecified severe protein-calorie malnutrition; J69.0 Pneumonitis due to inhalation of food and vomit; N17.9 Acute kidney failure, unspecified; D68.9 Coagulation defect, unspecified; Z16.12 Extended spectrum beta lactamase (ESBL) resistance; M46.28 Osteomyelitis of vertebra, sacral and sacrococcygeal region; J90 Pleural effusion, not elsewhere classified; J93.9 Pneumothorax, unspecified; L97.409 Non-pressure chronic ulcer of unspecified heel and midfoot with unspecified severity; R41.82 Altered mental status, unspecified; I10 Essential (primary) hypertension; R00.0 Tachycardia, unspecified; I25.119 Atherosclerotic heart disease of native coronary artery with unspecified angina pectoris; F03.90 Unspecified dementia, unspecified severity, without behavioral disturbance, psychotic disturbance, mood disturbance, and anxiety; E78.00 Pure hypercholesterolemia, unspecified; E11.9 Type 2 diabetes mellitus without complications; E86.0 Dehydration; E86.1 Hypovolemia; E83.52 Hypercalcemia; D64.9 Anemia, unspecified; I34.0 Nonrheumatic mitral (valve) insufficiency; R77.8 Other specified abnormalities of plasma proteins; G31.83 Neurocognitive disorder with Lewy bodies; F02.80 Dementia in other diseases classified elsewhere, unspecified severity, without behavioral disturbance, psychotic disturbance, mood disturbance, and anxiety; Z86.718 Personal history of other venous thrombosis and embolism; Z86.711 Personal history of pulmonary embolism; Z88.0 Allergy status to penicillin; Z68.24 Body mass index [BMI] 24.0-24.9, adult
CPT/HCPCS: 36415; 36430; 36511; 36569; 49440; 70450-TC; 71045-TC-FY; 71250-TC; 74018-TC-FY; 74176-TC; 74230-TC-FY; 76942; 77001-TC-FY; 80048; 80053; 81003; 82042; 82150; 82465; 82550; 82553; 82945; 82962; 83036; 83605; 83615; 83735; 83986; 84100; 84157; 84443; 84478; 84484; 85025; 85379; 85384; 85610; 85730; 86140; 86850; 86900; 86901; 86922; 87040; 87070; 87075; 87076; 87086; 87102; 87116; 87186; 87205; 87206; 87210; 88108; 88304-TC; 88305-TC; 92611-GN; 93005; 93010; 93306-TC; 94640; 94760; 94761; 97116-GP; 97162-GP; 99285-25; C1751; C9803; G0480; J0131; J1644; J2997; P9038; P9058; U0003; U0005

== ENCOUNTER 2021-01-26 13:38 | Inpatient (IN) | payer OTHER ==
[2021-01-26] MEDS ORDERED: SODIUM CHLORIDE 1,633 ML IV ONE (14:44)
[2021-01-26] MEDS ORDERED: SODIUM CHLORIDE 0.9% 500 ML INFUS.BAG IV ONE (15:03)
[2021-01-26] MEDS ORDERED: ACETAMINOPHEN 1000 MG/100 ML VIAL IVPB ONE (15:03)
[2021-01-26] MEDS ORDERED: VANCOMYCIN 1 GM in D5W (PRE-DOCKED) 1,000 MG/250 ML IVPB ONE (15:04)
[2021-01-26] MEDS ORDERED: DIGOXIN 0.5 MG/2 ML AMPUL IVPUSH ONE (15:05)
[2021-01-26] MEDS ORDERED: ACETAMINOPHEN INJECTION 100 ML IVPB ONE (15:14)
[2021-01-26] MEDS ORDERED: VANCOMYCIN 1 GRAM (PRE-DOCKED) 1,000 MG/250 ML BAG IVPB ONE (15:14)
[2021-01-26 15:35] LABS: BASO % 0.9 % (0-2.0); EOS % 1.8 % (0-4.5); HEMATOCRIT 29.5 % (32.4-45.2); HEMOGLOBIN 9.7 GM/dL (10.7-15.3); LYMPH % 11.9 % (8-40); MCH 31.6 pg (25.7-33.7); MEAN CELL VOLUME 95.9 fl (80-96); MEAN PLT VOLUME 8.7 fl (7.5-11.1); NEUT % 79.4 % (42.8-82.8); PLATELET COUNT 512 10^3/uL (134-434); RBC 3.07 M/mm3 (3.60-5.2); WHITE BLOOD COUNT 11.2 K/mm3 (4.0-10.0)
[2021-01-26 15:48] LABS: INR 1.32 (0.83-1.09)
[2021-01-26 15:52] LABS: LACTIC ACID 2.3 mmol/L (0.4-2.0)
[2021-01-26 16:00] LABS: ALBUMIN 1.5 g/dl (3.4-5.0); BLOOD UREA NITROGEN 32.6 mg/dL (7-18)
[2021-01-26 16:03] LABS: CREATININE 0.8 mg/dL (0.55-1.3)
[2021-01-26 16:04] LABS: BILIRUBIN,TOTAL 0.3 mg/dL (0.2-1)
[2021-01-26 16:05] LABS: TOT PROT 5.9 g/dl (6.4-8.2)
[2021-01-26] MEDS ORDERED: METOPROLOL TARTRATE 5 MG/5 ML VIAL IVPUSH ONE (16:12)
[2021-01-26] MEDS ORDERED: DIGOXIN 0.5 MG/2 ML AMPUL ONE (16:23)
[2021-01-26] MEDS ORDERED: METOPROLOL TARTRATE 5 MG/5 ML VIAL ONE (16:44)
[2021-01-26] MEDS ORDERED: CEFTRIAXONE 1 GM/50 ML BAG ONE (16:44)
[2021-01-26] MEDS ORDERED: METOPROLOL TARTRATE 25 MG TABLET (FP) PO ONE (16:58)
[2021-01-26] MEDS ORDERED: METOPROLOL TARTRATE 25 MG TABLET (FP) ONE (17:23)
[2021-01-26 20:48] LABS: EPI CELLS >36 /uL (0-25.1); HYALINE CASTS 3 /uL (0-3.1); URINE APPEARANCE CLEAR; URINE BACTERIA 18 /uL (0-1359); URINE BILIRUBIN NEGATIVE (NEGATIVE); URINE COLOR YELLOW; URINE GLUCOSE (UA) NEGATIVE (NEGATIVE); URINE KETONE NEGATIVE (NEGATIVE); URINE LEUK ESTERASE 1+ (NEGATIVE); URINE NITRITE NEGATIVE (NEGATIVE); URINE PROTEIN TRACE (NEGATIVE); URINE RBC 19 /uL (0-23.9); URINE WBC 53 /uL (0-25.8)
[2021-01-26] MEDS ORDERED: VANCOMYCIN 1,000 MG in DEXTROSE 5%-WATER - 250 ML IVPB SCH ×2 (22:15→22:30)
[2021-01-26] MEDS ORDERED: APIXABAN 2.5 MG TABLET PO SCH (22:15)
[2021-01-26] MEDS ORDERED: MEROPENEM 1 GM in DEXTROSE 5%-WATER 100 ML IVPB SCH (22:30)
[2021-01-27] MEDS ORDERED: MEROPENEM 1 GM VIAL (RESTRICTED TO ID) IVPB ONE ×3 (00:28→08:40)
[2021-01-27] MEDS ORDERED: APIXABAN 2.5 MG TABLET ONE (00:28)
[2021-01-27] MEDS: MEROPENEM 1 GM in DEXTROSE 5%-WATER 100 ML IVPB SCH ×2 (00:46→09:49)
[2021-01-27] MEDS: INSULIN SLIDING SCALE (NOVOLOG) 1 VIAL SQ SCH ×5 (00:49→22:07)
[2021-01-27] MEDS ORDERED: MEROPENEM 1 GM in DEXTROSE 5%-WATER 100 ML IVPB SCH (02:00)
[2021-01-27] MEDS: VANCOMYCIN 1 GRAM (PRE-DOCKED) 1,000 MG/250 ML BAG IVPB SCH ×2 (04:21→15:07)
[2021-01-27 05:45] VITALS: BMI 20.6
[2021-01-27] MEDS ORDERED: LEVOTHYROXINE NA 25 MCG TABLET (FP) PO SCH (07:00)
[2021-01-27 07:38] LABS: BASO % 1.1 % (0-2.0); EOS % 1.5 % (0-4.5); HEMOGLOBIN 9.2 GM/dL (10.7-15.3); LYMPH % 11.6 % (8-40); MCH 31.8 pg (25.7-33.7); MCHC 32.7 g/dl (32.0-36.0); MEAN CELL VOLUME 97.3 fl (80-96); MEAN PLT VOLUME 8.6 fl (7.5-11.1); MONO % 6.3 % (3.8-10.2); NEUT % 79.5 % (42.8-82.8); PLATELET COUNT 437 10^3/uL (134-434); RBC 2.87 M/mm3 (3.60-5.2); RDW 18.4 % (11.6-15.6); WHITE BLOOD COUNT 9.1 K/mm3 (4.0-10.0)
[2021-01-27 08:00] LABS: LACTIC ACID 2.4 mmol/L (0.4-2.0)
[2021-01-27 08:03] LABS: ALBUMIN 1.3 g/dl (3.4-5.0)
[2021-01-27 08:04] LABS: BLOOD UREA NITROGEN 28.6 mg/dL (7-18)
[2021-01-27 08:05] LABS: CALCIUM 7.6 mg/dL (8.5-10.1)
[2021-01-27 08:06] LABS: IRON SERUM 32 ug/dL (50-175); MAGNESIUM 1.9 mg/dL (1.8-2.4)
[2021-01-27 08:08] LABS: TOTAL IRON BINDING CAPACITY 111 ug/dL (250-450)
[2021-01-27 08:09] LABS: CREATININE 0.7 mg/dL (0.55-1.3); PHOSPHOROUS 3.6 mg/dL (2.5-4.9)
[2021-01-27 08:10] LABS: BILIRUBIN,TOTAL 0.4 mg/dL (0.2-1)
[2021-01-27 08:11] LABS: TOT PROT 5.3 g/dl (6.4-8.2)
[2021-01-27] MEDS ORDERED: DEXTROSE 5%-WATER 100 ML IVPB ONE ×2 (08:40→18:26)
[2021-01-27] MEDS: COLLAGENASE CLOSTRIDIUM HIST. 30 GRAMS TUBE TP SCH (09:45)
[2021-01-27] MEDS: APIXABAN 2.5 MG TABLET GT SCH ×2 (09:48→22:05)
[2021-01-27] MEDS: LOSARTAN POTASSIUM 25 MG TABLET GT SCH (09:48)
[2021-01-27] MEDS: SODIUM ZIRCONIUM CYCLOSILICATE (LOKELMA) 5 GM PACKET PO SCH (09:49)
[2021-01-27] MEDS: METOPROLOL TARTRATE 25 MG TABLET (FP) GT SCH ×2 (09:49→22:05)
[2021-01-27] MEDS: LACTOBACILLUS ACIDOPHILUS 1 TABLET GT SCH (09:49)
[2021-01-27] MEDS: CEFTRIAXONE 2 GM in DEXTROSE 5%-WATER 2 GM/100 ML BAG IVPB SCH (18:27)
[2021-01-27] MEDS: ATORVASTATIN CA 40 MG TABLET (FP) PEG SCH (22:05)
[2021-01-28] MEDS: VANCOMYCIN/WATER FOR INJ (PEG) 750 MG/150 ML BAG IVPB SCH ×2 (03:19→15:01)
[2021-01-28] MEDS: INSULIN SLIDING SCALE (NOVOLOG) 1 VIAL SQ SCH ×4 (06:20→21:59)
[2021-01-28 08:16] LABS: BASO % 0.9 % (0-2.0); CALCIUM 7.5 mg/dL (8.5-10.1); EOS % 0.7 % (0-4.5); HEMATOCRIT 26.6 % (32.4-45.2); HEMOGLOBIN 8.9 GM/dL (10.7-15.3); LYMPH % 10.3 % (8-40); MCH 32.7 pg (25.7-33.7); MCHC 33.6 g/dl (32.0-36.0); MEAN CELL VOLUME 97.4 fl (80-96); MEAN PLT VOLUME 9.1 fl (7.5-11.1); MONO % 5.4 % (3.8-10.2); NEUT % 82.7 % (42.8-82.8); PLATELET COUNT 417 10^3/uL (134-434); RBC 2.73 M/mm3 (3.60-5.2); RDW 17.8 % (11.6-15.6); WHITE BLOOD COUNT 8.7 K/mm3 (4.0-10.0)
[2021-01-28 08:17] LABS: BLOOD UREA NITROGEN 27.4 mg/dL (7-18)
[2021-01-28 08:20] LABS: ALBUMIN 1.2 g/dl (3.4-5.0); MAGNESIUM 1.9 mg/dL (1.8-2.4)
[2021-01-28 08:23] LABS: BILIRUBIN,TOTAL 0.5 mg/dL (0.2-1); CREATININE 0.8 mg/dL (0.55-1.3); TOT PROT 5.1 g/dl (6.4-8.2)
[2021-01-28] MEDS ORDERED: DEXTROSE 5%-WATER 100 ML IVPB ONE (08:56)
[2021-01-28] MEDS ORDERED: FLU VACC QS2021-22(6MOS UP)/PF 60 MCG/0.5 ML SYRINGE IM ONE (09:00)
[2021-01-28] MEDS: CEFTRIAXONE 2 GM in DEXTROSE 5%-WATER 2 GM/100 ML BAG IVPB SCH (09:02)
[2021-01-28] MEDS: COLLAGENASE CLOSTRIDIUM HIST. 30 GRAMS TUBE TP SCH (09:10)
[2021-01-28] MEDS: SODIUM HYPOCHLORITE 0.25%- 473 ML BULK BOTTLE TP SCH (11:30)
[2021-01-28] MEDS: AMINO ACIDS/PROTEIN HYDROLYS 30 ML LIQUID.PKT PO SCH ×2 (11:51→17:13)
[2021-01-28] MEDS: SODIUM ZIRCONIUM CYCLOSILICATE (LOKELMA) 5 GM PACKET PO SCH (11:51)
[2021-01-28] MEDS: METOPROLOL TARTRATE 25 MG TABLET (FP) GT SCH ×2 (11:52→21:49)
[2021-01-28] MEDS: LOSARTAN POTASSIUM 25 MG TABLET GT SCH (11:53)
[2021-01-28] MEDS: APIXABAN 2.5 MG TABLET GT SCH ×2 (11:54→21:49)
[2021-01-28] MEDS: LACTOBACILLUS ACIDOPHILUS 1 TABLET GT SCH (11:54)
[2021-01-28] MEDS ORDERED: PT OWN MED DRAWER 7, Y5N ONE ×2 (12:39→15:00)
[2021-01-28] MEDS: ATORVASTATIN CA 40 MG TABLET (FP) PEG SCH (21:49)
[2021-01-29] MEDS: VANCOMYCIN/WATER FOR INJ (PEG) 750 MG/150 ML BAG IVPB SCH ×2 (02:54→16:00)
[2021-01-29] MEDS: INSULIN SLIDING SCALE (NOVOLOG) 1 VIAL SQ SCH ×4 (06:37→22:36)
[2021-01-29 08:47] LABS: BASO % 0.8 % (0-2.0); EOS % 2.2 % (0-4.5); HEMATOCRIT 29.3 % (32.4-45.2); HEMOGLOBIN 9.6 GM/dL (10.7-15.3); LYMPH % 16.4 % (8-40); MCH 32.4 pg (25.7-33.7); MCHC 32.9 g/dl (32.0-36.0); MEAN CELL VOLUME 98.5 fl (80-96); MEAN PLT VOLUME 8.8 fl (7.5-11.1); MONO % 11.8 % (3.8-10.2); NEUT % 68.8 % (42.8-82.8); PLATELET COUNT 426 10^3/uL (134-434); RBC 2.97 M/mm3 (3.60-5.2); RDW 17.8 % (11.6-15.6); WHITE BLOOD COUNT 8.8 K/mm3 (4.0-10.0)
[2021-01-29 09:01] LABS: ALBUMIN 1.3 g/dl (3.4-5.0); CALCIUM 7.9 mg/dL (8.5-10.1)
[2021-01-29 09:02] LABS: BLOOD UREA NITROGEN 30.1 mg/dL (7-18); MAGNESIUM 2.3 mg/dL (1.8-2.4)
[2021-01-29 09:05] LABS: CREATININE 0.7 mg/dL (0.55-1.3)
[2021-01-29 09:06] LABS: BILIRUBIN,TOTAL 0.4 mg/dL (0.2-1); TOT PROT 5.1 g/dl (6.4-8.2)
[2021-01-29] MEDS ORDERED: ACETAMINOPHEN 1000 MG/100 ML VIAL IVPB ONE (09:42)
[2021-01-29] MEDS ORDERED: DEXTROSE 5%-WATER 100 ML IVPB ONE (09:43)
[2021-01-29] MEDS: CEFTRIAXONE 2 GM in DEXTROSE 5%-WATER 2 GM/100 ML BAG IVPB SCH (09:44)
[2021-01-29] MEDS: SODIUM ZIRCONIUM CYCLOSILICATE (LOKELMA) 5 GM PACKET PO SCH (09:44)
[2021-01-29] MEDS: METOPROLOL TARTRATE 25 MG TABLET (FP) GT SCH ×2 (09:44→22:35)
[2021-01-29] MEDS: LACTOBACILLUS ACIDOPHILUS 1 TABLET GT SCH (09:44)
[2021-01-29] MEDS: COLLAGENASE CLOSTRIDIUM HIST. 30 GRAMS TUBE TP SCH (09:44)
[2021-01-29] MEDS: APIXABAN 2.5 MG TABLET GT SCH ×2 (09:44→22:35)
[2021-01-29] MEDS: SODIUM HYPOCHLORITE 0.25%- 473 ML BULK BOTTLE TP SCH (09:45)
[2021-01-29] MEDS: AMINO ACIDS/PROTEIN HYDROLYS 30 ML LIQUID.PKT PO SCH ×2 (10:03→17:17)
[2021-01-29] MEDS ORDERED: PT OWN MED DRAWER 7, Y5N ONE (15:59)
[2021-01-29] MEDS: BANATROL PLUS POWDER PACKET PO SCH ×2 (17:58→22:42)
[2021-01-29] MEDS: ATORVASTATIN CA 40 MG TABLET (FP) PEG SCH (22:35)
[2021-01-30] MEDS: VANCOMYCIN 750 MG in DEXTROSE 5%-WATER - 250 ML IVPB SCH (04:07)
[2021-01-30] MEDS: BANATROL PLUS POWDER PACKET PO SCH ×3 (06:13→22:04)
[2021-01-30] MEDS: INSULIN SLIDING SCALE (NOVOLOG) 1 VIAL SQ SCH ×4 (06:15→22:05)
[2021-01-30] MEDS: LIOTHYRONINE SODIUM 5 MCG TABLET PO SCH (06:15)
[2021-01-30] MEDS: LEVOTHYROXINE NA 25 MCG TABLET (FP) PO SCH (06:18)
[2021-01-30] MEDS: AMINO ACIDS/PROTEIN HYDROLYS 30 ML LIQUID.PKT PO SCH ×2 (08:30→17:17)
[2021-01-30 08:57] LABS: BASO % 0.8 % (0-2.0); EOS % 1.2 % (0-4.5); HEMATOCRIT 31.4 % (32.4-45.2); HEMOGLOBIN 9.8 GM/dL (10.7-15.3); LYMPH % 12.1 % (8-40); MCH 32.4 pg (25.7-33.7); MCHC 31.3 g/dl (32.0-36.0); MEAN CELL VOLUME 103.8 fl (80-96); MEAN PLT VOLUME 8.8 fl (7.5-11.1); MONO % 10.9 % (3.8-10.2); PLATELET COUNT 370 10^3/uL (134-434); RBC 3.03 M/mm3 (3.60-5.2); RDW 19.1 % (11.6-15.6); WHITE BLOOD COUNT 7.7 K/mm3 (4.0-10.0)
[2021-01-30] MEDS ORDERED: DEXTROSE 5%-WATER 100 ML IVPB ONE (09:42)
[2021-01-30 09:53] LABS: ALBUMIN 1.3 g/dl (3.4-5.0); CALCIUM 7.2 mg/dL (8.5-10.1)
[2021-01-30 09:55] LABS: BLOOD UREA NITROGEN 30.7 mg/dL (7-18); MAGNESIUM 2.2 mg/dL (1.8-2.4)
[2021-01-30 09:56] LABS: TOT PROT 5.2 g/dl (6.4-8.2)
[2021-01-30 09:57] LABS: CREATININE 0.7 mg/dL (0.55-1.3)
[2021-01-30 09:59] LABS: BILIRUBIN,TOTAL 0.2 mg/dL (0.2-1)
[2021-01-30] MEDS: CEFTRIAXONE 2 GM in DEXTROSE 5%-WATER 2 GM/100 ML BAG IVPB SCH (10:06)
[2021-01-30] MEDS: LACTOBACILLUS ACIDOPHILUS 1 TABLET GT SCH (11:00)
[2021-01-30] MEDS: METOPROLOL TARTRATE 25 MG TABLET (FP) GT SCH ×2 (11:00→22:03)
[2021-01-30] MEDS: APIXABAN 2.5 MG TABLET GT SCH ×2 (11:00→22:03)
[2021-01-30] MEDS: SODIUM ZIRCONIUM CYCLOSILICATE (LOKELMA) 5 GM PACKET PO SCH (11:00)
[2021-01-30] MEDS ORDERED: PT OWN MED DRAWER 7, Y5N ONE ×3 (11:32→22:00)
[2021-01-30] MEDS: SODIUM HYPOCHLORITE 0.25%- 473 ML BULK BOTTLE TP SCH (12:23)
[2021-01-30] MEDS: COLLAGENASE CLOSTRIDIUM HIST. 30 GRAMS TUBE TP SCH (12:23)
[2021-01-30] MEDS: ATORVASTATIN CA 40 MG TABLET (FP) PEG SCH (22:04)
[2021-01-31] MEDS: LEVOTHYROXINE NA 25 MCG TABLET (FP) PO SCH (06:06)
[2021-01-31] MEDS: BANATROL PLUS POWDER PACKET PO SCH (06:06)
[2021-01-31] MEDS: LIOTHYRONINE SODIUM 5 MCG TABLET PO SCH (06:06)
[2021-01-31] MEDS: INSULIN SLIDING SCALE (NOVOLOG) 1 VIAL SQ SCH ×4 (06:07→21:54)
[2021-01-31] MEDS: VANCOMYCIN/WATER FOR INJ (PEG) 750 MG/150 ML BAG IVPB SCH (07:27)
[2021-01-31] MEDS ORDERED: DEXTROSE 5%-WATER 100 ML IVPB ONE (08:15)
[2021-01-31] MEDS ORDERED: PT OWN MED DRAWER 7, Y5N ONE ×2 (08:19→15:31)
[2021-01-31] MEDS: LACTOBACILLUS ACIDOPHILUS 1 TABLET GT SCH (10:19)
[2021-01-31] MEDS: APIXABAN 2.5 MG TABLET GT SCH ×2 (10:19→21:53)
[2021-01-31] MEDS: AMINO ACIDS/PROTEIN HYDROLYS 30 ML LIQUID.PKT PO SCH ×2 (10:20→17:25)
[2021-01-31] MEDS: METOPROLOL TARTRATE 25 MG TABLET (FP) GT SCH ×2 (10:20→21:54)
[2021-01-31] MEDS: SODIUM ZIRCONIUM CYCLOSILICATE (LOKELMA) 5 GM PACKET PO SCH (10:20)
[2021-01-31] MEDS: SODIUM HYPOCHLORITE 0.25%- 473 ML BULK BOTTLE TP SCH (10:20)
[2021-01-31] MEDS: COLLAGENASE CLOSTRIDIUM HIST. 30 GRAMS TUBE TP SCH (10:37)
[2021-01-31 10:39] LABS: BASO % 0.8 % (0-2.0); EOS % 1.5 % (0-4.5); HEMOGLOBIN 9.1 GM/dL (10.7-15.3); LYMPH % 9.6 % (8-40); MCH 32.4 pg (25.7-33.7); MCHC 33.6 g/dl (32.0-36.0); MEAN CELL VOLUME 96.4 fl (80-96); MEAN PLT VOLUME 8.6 fl (7.5-11.1); NEUT % 79.1 % (42.8-82.8); PLATELET COUNT 359 10^3/uL (134-434); RDW 17.6 % (11.6-15.6)
[2021-01-31 10:57] LABS: ALBUMIN 1.2 g/dl (3.4-5.0); BLOOD UREA NITROGEN 28.6 mg/dL (7-18); CALCIUM 7.5 mg/dL (8.5-10.1)
[2021-01-31 11:00] LABS: CREATININE 0.6 mg/dL (0.55-1.3)
[2021-01-31 11:01] LABS: BILIRUBIN,TOTAL 0.3 mg/dL (0.2-1); TOT PROT 4.8 g/dl (6.4-8.2)
[2021-01-31] MEDS: CEFTRIAXONE 2 GM in DEXTROSE 5%-WATER 2 GM/100 ML BAG IVPB SCH (11:45)
[2021-01-31] MEDS ORDERED: ARIPiprazole 2 MG TABLET PO SCH (12:30)
[2021-01-31] MEDS: ARIPiprazole 2 MG TABLET PO SCH (15:40)
[2021-01-31] MEDS: VANCOMYCIN 750 MG in DEXTROSE 5%-WATER - 250 ML IVPB SCH (15:53)
[2021-01-31] MEDS: ATORVASTATIN CA 40 MG TABLET (FP) PEG SCH (21:53)
[2021-02-01] MEDS ORDERED: PT OWN MED DRAWER 7, Y5N ONE ×2 (06:30→14:57)
[2021-02-01] MEDS: LIOTHYRONINE SODIUM 5 MCG TABLET PO SCH (06:34)
[2021-02-01] MEDS: INSULIN SLIDING SCALE (NOVOLOG) 1 VIAL SQ SCH ×2 (06:34→12:25)
[2021-02-01] MEDS: LEVOTHYROXINE NA 25 MCG TABLET (FP) PO SCH (06:34)
[2021-02-01] MEDS ORDERED: DEXTROSE 5%-WATER 100 ML IVPB ONE (07:46)
[2021-02-01 08:26] VITALS: BP 122/69; PULSE 112; TEMP 98.8
[2021-02-01] MEDS: CEFTRIAXONE 2 GM in DEXTROSE 5%-WATER 2 GM/100 ML BAG IVPB SCH (09:00)
[2021-02-01] MEDS: AMINO ACIDS/PROTEIN HYDROLYS 30 ML LIQUID.PKT PO SCH (09:56)
[2021-02-01] MEDS: LACTOBACILLUS ACIDOPHILUS 1 TABLET GT SCH (10:03)
[2021-02-01] MEDS: ARIPiprazole 2 MG TABLET PO SCH (10:03)
[2021-02-01] MEDS: METOPROLOL TARTRATE 25 MG TABLET (FP) GT SCH (10:03)
[2021-02-01] MEDS: APIXABAN 2.5 MG TABLET GT SCH (10:03)
[2021-02-01] MEDS: COLLAGENASE CLOSTRIDIUM HIST. 30 GRAMS TUBE TP SCH (10:04)
[2021-02-01] MEDS: SODIUM HYPOCHLORITE 0.25%- 473 ML BULK BOTTLE TP SCH (10:04)
== END 2021-02-01 17:46 | disposition home or self-care (01) | DRG 871 ==
LOC: JER 13:38 → JERBED 17:01 → J4W 01-27 02:33
PROVIDERS: ADMIT Internal Medicine; ATTEND Nurse Practitioner Acute Care
DX: A41.59 Other Gram-negative sepsis (principal); L89.154 Pressure ulcer of sacral region, stage 4; E43 Unspecified severe protein-calorie malnutrition; E87.2 Acidosis; N17.9 Acute kidney failure, unspecified; Z43.1 Encounter for attention to gastrostomy; R64 Cachexia; L89.610 Pressure ulcer of right heel, unstageable; G31.83 Neurocognitive disorder with Lewy bodies; E78.5 Hyperlipidemia, unspecified; F03.90 Unspecified dementia, unspecified severity, without behavioral disturbance, psychotic disturbance, mood disturbance, and anxiety; E87.5 Hyperkalemia; E11.9 Type 2 diabetes mellitus without complications; I10 Essential (primary) hypertension; I25.10 Atherosclerotic heart disease of native coronary artery without angina pectoris; R62.7 Adult failure to thrive; Z88.0 Allergy status to penicillin; I48.0 Paroxysmal atrial fibrillation; D72.829 Elevated white blood cell count, unspecified
CPT/HCPCS: 36415; 71045-TC-FY; 80053; 80061; 81003; 82550; 82962; 83540; 83550; 83605; 83735; 84100; 84132; 84439; 84443; 84481; 84484; 85025; 85045; 85610; 85730; 86850; 86900; 86901; 87040; 87070; 87086; 87186; 87205; 90686; 93005; 93010; 99285-25; C9803; G0008; G0480; J0131; U0003; U0005